=== PATIENT | female | born 1995 | race Caucasian/White ===

== ENCOUNTER 2025-06-05 07:41 | Emergency (ER) | payer OTHER, SELFPAY ==
[2025-06-05 07:43] VITALS: BP 128/86
[2025-06-05 08:23] VITALS: BMI 32.2
[2025-06-05] MEDS: NSS 1000 IV (08:36)
[2025-06-05] MEDS: TORADOL 15 MG IV (08:37)
--- NOTE | 2025-06-05 08:39 | ED.GENMED ---
History of Present Illness
General
Chief Complaint: Flank Pain
Source: patient
Exam Limitations: none
Time Seen by Provider: 06/05/25 07:56
Nursing documentation reviewed up to this point in time: agreed with
History of Present Illness
History of Present Illness:
Patient is a 30-year-old female with past with history of depression ADHD, kidney stones presents to the ER for evaluation of left flank pain. She reports pain started last night around 9 PM radiates to her left abdomen. She does report this feels
similar to her kidneys in the past. She is nauseous and has vomited. She denies any fever chills urinary frequency urgency.
Phy Exam
General Physical Exam
General Presentation: no apparent distress
General age: appears stated age
General Skin: warm and dry
General Habitus: normal
General Mental: alert
General Hydration: appears well hydrated
Gastrointestinal Exam
Gastrointestinal Exam: non tender and soft
Neurological Exam
Neurological Exam: alert and oriented x3
Musculoskeletal Exam
Musculoskeletal Exam: full ROM
Skin Exam
Skin Exam: normal color and warm/dry
Psychiatric Exam
Psychiatric Exam: normal mood/affect
Course
Orders/Labs/Results
Orders:
Orders
06/05/25 08:07
Test Result ONCE
06/05/25 08:19
IV Insert/Care/Rem.- Treatment PRN
0.9% Sodium Chloride 1000 ml [Nss] 1,000 ml IV BOLUS
Ketorolac [Toradol] 15 mg IV NOW STA
06/05/25 08:20
CT Abd/pel Without Iv Or Oral Urgent
Comment:
Reason For Exam: left flank pain
06/05/25 08:35
Complete Blood Count/With Diff Urgent
06/05/25 09:23
Comprehensive Metabolic Panel Urgent
HCG, Serum Qualitative Screen Urgent
06/05/25 09:49
HYDROmorphone [Dilaudid] 0.5 mg IV NOW STA
Ondansetron Injectable [Zofran] 4 mg IV NOW STA
06/05/25 12:20
UA Reflex to Culture [Urinalysis Reflex To Culture] Urgent
Date Specimen was Collected: 06/05/25
Time Specimen was Collected: 12:14
Urine Microscopic Reflex Cult Urgent
Urine Culture Urgent
LING Source: U
Specimen Description:
Date Specimen was Collected: 06/05/25
Time Specimen was Collected: 12:14
Tamsulosin [Flomax] 0.4 mg PO NOW STA
Abnormal Lab Results
06/05/25 06/05/25 06/05/25
08:35 09:23 12:20
WBC 3.0 L 10^3/uL
(4.8-10.8)
Absolute Lymphs (auto) 0.2 L 10^3/uL
(1.2-3.4)
Absolute Monos (auto) 0.0 L 10^3/uL
(0.1-0.6)
Neutrophils % 90.9 H %
(42.2-75.2)
Lymphocytes % 7.8 L %
(20.5-51.1)
Monocytes % 0.3 L %
(1.7-9.3)
Chloride 111 H mmol/L
(98-107)
Carbon Dioxide 17 L mmol/L
(22-30)
Creatinine 1.4 H mg/dL
(0.6-1.0)
Calcium 8.3 L mg/dl
(8.4-10.2)
AST 79 H U/L
(14-36)
ALT 38 H U/L
(0-35)
Urine Ketones 1+ A
(Negative)
Ur Occult Blood Reflex 4+ A
(Negative)
Urine Nitrite (Reflex) Positive A
(Negative)
Urine Bilirubin 3+ A
(Negative)
Urine Urobilinogen 4+ A
(Neg - 1+)
Leukocyte Esterase Rfl 3+ A
(Negative)
Urine RBC 3-6 A /HPF
(0-2)
Urine WBC (Reflex) 50-60 A /HPF
(0-5)
Urine Bacteria (Reflex) Few A
(Negative)
Urine Albumin (Reflex) 2+ A
(Neg - Trace)
06/05/25 08:35
06/05/25 09:23
Vital Signs
Initial and Last Documented VS:
Initial Vital Signs
Temp Pulse Resp BP Pulse Ox
98.8 F 108 16 128/86 96
06/05/25 07:43 06/05/25 07:43 06/05/25 07:43 06/05/25 07:43 06/05/25 07:43
Last Documented Vital Signs
Temp Pulse Resp BP Pulse Ox
98.8 F 105 16 104/69 100
06/05/25 07:43 06/05/25 12:15 06/05/25 12:15 06/05/25 12:15 06/05/25 12:15
Sales Lead consulted with Physician
Sales Lead consulted with physician?: Yes
Name of Physician Consulted: [facility]
MDM/Problems Addressed
Differential Diagnosis Includes:
not limited to renal colic; UTI
MDM/Problems Addressed:
As documented patient is a 30-year-old female present with left flank pain. CAT scan does show kidney stone. Patient does have a history of kidney stone. Patient has a 2 mm obstructing left UVJ calculus. Received fluids Toradol did require IV
narcotics. Feeling better. She denies any fevers white count is minimally low at 3.0. Her LFTs very minimally elevated with normal renal function. When speaking to her about her liver functions she is on multiple antidepressants and antianxiety
medicine and was told this could raise her liver function test. Will have patient follow-up with her family doctor for reevaluation of this along with repeat blood work.
Will DC with outpatient with urology .
Patient did give urine specimen however appears contaminated with 26�30 squamous cells. White blood cells at 50�60 however with contaminated specimen as discussed with ED physician will hold off on treating at this time. Culture sent. Patient has
no urinary symptoms, afebrile in no distress.
Chronic conditions affecting care:
History of previous renal colic, depression anxiety
*Radiology
Radiology exam reviewed: radiology read reviewed
*Pulse Oximetry
SaO2: 96
Oxygen Mode of Delivery: Room air
Patient hypoxic: no
*Critical Care Note
Total Time (30-74mins, 75-104mins- exclusive of procedures): Not Applicable
ED Attending Note
-
Portions of this chart may have been created with voice recognition software.� Occasional wrong word or��sound alike� substitutions may have occurred due to the inherent limitations of voice recognition software.
Discharge Plan
Departure
Patient Disposition: Home (Routine Discharge)
Date of Disposition: 06/05/25
Time of Disposition: 13:08
Patient with high blood pressure during this ER visit?: No
Condition: Fair
Covid-19: Not Applicable
Discharge Problem:
Kidney stone
Instructions: Kidney Stones (DC), Narcotic Pain Medication
Prescriptions:
New
tamsulosin [Flomax] 0.4 mg capsule
0.4 mg PO DAILY Qty: 7 0RF
oxycodone 5 mg capsule
5 mg PO Q8H PRN (Reason: Pain) Qty: 10 0RF
Referrals:
Sandip Carey Jr., MD [Active, Urology]
Leela Pat MD [Family Provider, Family Practice]
Activity Restrictions/Additional Instructions:
As discussed please increase water intake; you may continue to take Flomax. Strain all urine
You may take ibuprofen and alternate with Tylenol as needed for pain however a prescription for oxycodone, and narcotic pain is so sent to pharmacy take as needed. This medicine may cause constipation please take a laxative while taking this
medication. In addition this is a narcotic no driving or drinking alcohol while taking this medicine
Follow-up with urology in the next several days . call to make an appointment.
As discussed a urine culture was sent please give the ER a call if you do not hear from us within the next 48 hours [phone] to check on urine culture
Return if any worsening of symptoms of increased pain fever chills nausea vomiting.
Interventions
Interventions:
*Risk Screen - Suicide Last Done: 06/05/25 07:43
*General Assessment Last Done: 06/05/25 08:18
*Neglect/Abuse Screening Last Done: 06/05/25 07:43
*ED- Fall Risk Assessment Last Done: 06/05/25 07:55
*ED COVID-19 Vaccine History Last Done: 06/05/25 08:18
QK-[id number]-Twvlowpmbc Assessment Last Done: 06/05/25 07:55
ED-Female Genitourinary Assessment Last Done: 06/05/25 07:55
Discharge Date and Time
Print Language: SPANISH
[2025-06-05 08:46] LABS: Hematocrit 39.4 % (37.0-47.0); Hemoglobin 13.3 g/dL (12.0-16.0); Mean Corp Hgb Conc. 33.8 g/dL (33.0-37.0); Mean Corpuscular Volume 84.5 fL (81.0-99.0); Nucleated Red Blood Cells % 0 %; Platelet Count 227 10^3/uL (130-400); Red Cell Dist. Width 12.6 % (11.5-14.5)
[2025-06-05 09:29] VITALS: BP 105/67
[2025-06-05 09:46] LABS: HCG, Serum Qualitative Screen Negative
[2025-06-05 09:48] LABS: ALT (SGPT) 38 U/L (0-35); AST (SGOT) 79 U/L (14-36); Albumin 4.0 g/dl (3.5-5.0); Alkaline Phosphatase 89 U/L (38-126); Blood Urea Nitrogen 17 mg/dl (7-17); Calcium 8.3 mg/dl (8.4-10.2); Carbon Dioxide 17 mmol/L (22-30); Chloride 111 mmol/L (98-107); Estimated Creatinine Clearance 58 ml/min; Glucose 92 mg/dl (70-99); Potassium 3.9 mmol/L (3.5-5.1); Sodium 137 mmol/L (135-145); Total Protein 6.6 g/dl (6.3-8.2); eGFR 52.23
[2025-06-05] MEDS: DILAUDID 0.5 MG IV (09:54)
[2025-06-05] MEDS: ZOFRAN 4 MG IV (09:54)
[2025-06-05 12:15] VITALS: BP 104/69
[2025-06-05] MEDS: FLOMAX 0.4 MG PO (12:24)
[2025-06-05 12:30] LABS: Urine Character Slightly Cloudy (Clear)
[2025-06-05 12:54] LABS: Urine Squamous Cell 26-30 /LPF (Few); Urine White Cell 50-60 /HPF (0-5)
[2025-06-05 13:22] VITALS: BP 110/77
== END 2025-06-05 13:25 | disposition home or self-care (01) ==
LOC: EMR 07:41
PROVIDERS: Nurse Practitioner; EMERGENCY PHYSICIAN Emergency Medicine; FAMILY PHYSICIAN Family Medicine
DX: N20.2 Calculus of kidney with calculus of ureter (principal); F32.A Depression, unspecified; F90.9 Attention-deficit hyperactivity disorder, unspecified type; Z87.442 Personal history of urinary calculi
CPT/HCPCS: 99284; 96374; 96375; 96361; 74176; 80053; 81003; 81015; 84703; 85025; 87077; 87086; 87186

== ENCOUNTER 2025-06-06 08:20 | Inpatient (IN) | payer OTHER, SELFPAY ==
[2025-06-06] VITALS (52 sets, daily range): BP systolic 50–134; BP diastolic 25–118; BMI 35.9
[2025-06-06] MEDS: NSS 1000 IV ×2 (07:07→08:11)
[2025-06-06] MEDS: LEVOPHED 250 IV ×3 (07:07→20:58)
[2025-06-06] MEDS: MAXIPIME 2000 MG IV ×2 (07:08→17:47)
--- NOTE | 2025-06-06 07:11 | ED.GENMED ---
History of Present Illness
General
Chief Complaint: Fever
Source: patient and records
Exam Limitations: clinical condition
History of Present Illness
History of Present Illness:
30-year-old female returns dizzy lightheaded weak ongoing back and now some neck pain. Seen yesterday for kidney stone. 2 mm stone distal ureter with hydronephrosis. Sweating at home but no obvious chills or fever. Ongoing nausea. Pain
management at midnight but no other pain medication since then
Past History
Past History
ED Past Medical History: Psychiatric (ADHD/depression)
ED Past Surgical History: Cholecystectomy and
Review of Systems
Review of Systems
All Other Systems: Not applicable
Constitutional: Reports night sweats; Denies fever
Respiratory: Reports no symptoms
Cardiac: Reports no symptoms
Phy Exam
Physical Exam
Physical Exam:
GENERAL: Alert. Toxic appearing. Slightly pale. Tachycardic and hypotensive
EYE: Orbits normal.
NECK: Supple, no pain with flexion
ENT: Pharynx without erythema
CARDIAC: Tachycardic and regular no murmur
LUNGS: Clear breath sounds,normal. Mild hyperventilation
ABDOMEN: Soft, without focal tenderness or distention
NEUROLOGICAL: Alert and oriented , grossly non-focal
SKIN: Warm and dry, no rash or lesion, no discoloration, skin intact.
MUSCULOSKELETAL: No edema,no deformity.Good color
PSYCH: Anxious
Sepsis
Sepsis Screening
Sepsis Assessment: Septic Shock
Sepsis Screening: Lactate >/=4mmol/L, Hypotension, ARF-Creatinine >2.0, Sustained Hypotension-SBP <90,MAP<65, or SBP decrease 40mmHg or more and Vasopressor support required
Sepsis Screen
Sepsis Screen: Septic Shock
Date: 06/06/25
Time: 09:08
Course
Orders/Labs/Results
Orders:
Orders
06/06/25 06:47
Electrocardiogram (*1) Urgent
Reason for Study: Other
Other Reason for Exam: sepsis
Cardiac Monitoring- Treatment ONCE
EKG- Treatment ONCE
IV Insert/Care/Rem.- Treatment PRN
0.9% Sodium Chloride 1000 ml [Nss] 1,000 ml IV BOLUS
Cefepime HCl [Maxipime] 2,000 mg IV NOW STA
Pulse Ox/cont/shift [RESP] Urgent
Quantity: 1
06/06/25 06:54
NORepinephrine 4 MG/250 ML [Levophed] 4 mg in 250 ml IV NOW
Initial dose in mcg/min, then titrate:: 2
Titrate to keep:: MAP > 65 mmHg
Titrate by mcg/min:: 1-2 mcg/min
Frequency of titrations (minutes):: 5
Maximum dose in ICU in mcg/min:: 30
Maximum dose in IMU in mcg/min:: 8
Maximum dose in IVU in mcg/min:: 4
Begin to taper infusion when:: Remained at goal for 4hrs
Taper by mcg/min:: 1-2 mcg/min
Frequency of taper (minutes) if patient maintains goal:: 30
Taper to off?: Yes
If infusion off & no longer maintaining goal:: Contact Provider
06/06/25 06:55
Complete Blood Count/With Diff Urgent
Comprehensive Metabolic Panel Urgent
Lipase Urgent
Comment: ADD ON
Manual Differential Urgent
Blood Culture Q30M
LING Source: Blood/Venous
Specimen Description:
Blood Culture Q30M
LING Source: Blood/Venous
Specimen Description:
06/06/25 06:57
IV Insert/Care/Rem.- Treatment PRN
06/06/25 06:59
Type+Screen Urgent
Lactic Acid Q4H
Comment: CANCEL 2nd LACTIC ACID IF 1st LACTIC ACID IS LESS THAN 2
06/06/25 07:10
Ondansetron Injectable [Zofran] 4 mg IV NOW STA
06/06/25 07:20
Acetaminophen 1000MG/100Ml [Ofirmev] 1,000 mg in 100 ml IV ONCE
Acetaminophen IV Indication:: ED Narcotic Naive Pt-ONCE
06/06/25 07:21
UROLOGY CONSULT Urgent
Consulting Provider: Kumar Oakley
Was physician already notified: Yes
Comment: Urosepsis 2/2 obstructing Kidney stone
06/06/25 07:23
Corn Shredder Consult Urgent
Consulting Provider: Bobby Egan
Was physician already notified: Yes
Reason for consult: sepsis obstructing kidney stone
06/06/25 07:26
CT Abd/pel Without Iv Or Oral Stat
Comment:
Reason For Exam: hypotension. kidnet stone
06/06/25 07:30
0.9% Sodium Chloride 1000 ml [Nss] 1,000 ml IV 100 mls/hr
06/06/25 07:31
Admit/Transfer Patient As Directed
Co-Sign Provider:
Level of Care: Inpatient admission
Assign to:: ICU
Physician / Group: Morelia Clark
Diagnosis: Sepsis 2/2 Obstructing Kidney Stone
Reason for Hospitalization: Sepsis 2/2 Obstructing Kidney Stone
Expected length of stay greater than two midnights?: Yes
ELOS- Estimated Length of Stay in days: 2
I certify the patient meets the requirements for IP care: Yes
PRN Pain Medication Management As Directed
May give lesser potent ordered pain med per pt: Yes
preference::
Protocol:: Medication orders for pain may be administered in a
manner that supports deferring to patient preference
when the pt is:
- Requesting an ordered lesser potent pain medication.
Least to most potent pain medications are defined
as: acetaminophen < NSAID < tramadol < opioids
(morphine, oxycodone, hydromorphone).
- Requesting a lesser dose of the same medication IF
ORDERED.
- Requesting a less intrusive route of administration
if both routes are prescribed by the provider (PO <
IV).
06/06/25 07:36
Code Status As Directed
Resuscitation Status: Full Code
06/06/25 07:54
0.9% Sodium Chloride 1000 ml [Nss] 1,000 ml IV BOLUS
06/06/25 07:55
Add On- LAB Urgent
Tests Added?: lipase
06/06/25 08:15
Dextrose 5%/Water 1000 ml [D5w] 1,000 ml Sodium Bicarbonate 150 meq IV 150 mls/hr
06/06/25 08:16
Vancomycin [Vancocin] 2,000 mg 0.9% Sodium Chloride 500 ml [Nss] 500 ml IV NOW
06/06/25 09:00
Calcium Gluconate 4,000 mg 0.9% Sodium Chloride 250 ml [Nss] 250 ml IV ONCE
06/06/25 11:00
Lactic Acid Q4H
Comment: CANCEL 2nd LACTIC ACID IF 1st LACTIC ACID IS LESS THAN 2
Abnormal Lab Results
06/06/25 06/06/25
06:55 06:59
WBC 16.1 H 10^3/uL
(4.8-10.8)
RBC 3.25 L 10^6/uL
(4.20-5.40)
Hgb 9.6 L D g/dL
(12.0-16.0)
Hct 27.8 L %
(37.0-47.0)
Plt Count 95 L D 10^3/uL
(130-400)
Abs Neuts (Manual) 13.5 H 10^3/uL
(1.4-6.5)
Band Neutrophils 35 H %
(0-3)
Lymphocytes (Manual) 1 L %
(20-51)
Chloride 111 H mmol/L
(98-107)
Carbon Dioxide 13 L* mmol/L
(22-30)
BUN 32 H mg/dl
(7-17)
Creatinine 2.9 H mg/dL
(0.6-1.0)
Lactic Acid 5.0 H* mmol/L
(0.7-2.0)
Calcium 6.6 L* D mg/dl
(8.4-10.2)
Total Bilirubin 1.7 H D mg/dl
(0.2-1.3)
AST 162 H U/L
(14-36)
ALT 163 H U/L
(0-35)
Total Protein 4.8 L D g/dl
(6.3-8.2)
Albumin 2.6 L g/dl
(3.5-5.0)
06/06/25 06:55
06/06/25 06:55
Vital Signs
Initial and Last Documented VS:
Initial Vital Signs
Pulse Resp BP
119 43 68/40
06/06/25 06:50 06/06/25 06:50 06/06/25 06:50
Last Documented Vital Signs
Temp Pulse Resp BP Pulse Ox
97.4 F 127 23 106/44 98
06/06/25 07:05 06/06/25 08:50 06/06/25 08:50 06/06/25 08:50 06/06/25 08:50
*Pulse Oximetry
SaO2: 99
Oxygen Mode of Delivery: Room air
Patient hypoxic: no
*EKG
Interpreted by ED Provider?: Yes
Interpretation: abnormal
Comparison EKG: changes noted
Heart Rate: 110
Rate: tachycardiac
Rhythm: sinus
[place]: normal axis
Interval: normal interval
QRS Pattern: normal QRS
Ischemia: non-specific ST changes
*Shoe Dyer Interpretation
Rate: tachycardiac
Interpretation: abnormal
Heart Rate: 120
Rhythm: sinus
*Critical Care Note
Total Time (30-74mins, 75-104mins- exclusive of procedures): 50
Update Note
Update Note:
0700... Urology contacted. Plan on the OR. #1 diagnosis would be urosepsis. Would have to considered a ruptured calyx but am not sure this would explain all her symptoms. She has some posterior neck pain also. Abdomen is nontender. Blood
pressure is improved somewhat on fluids and pressors.
0730... I called the lab. Drop in hemoglobi
Hg from 13+ to 9.6. Likely delusional but will resend her for a stat CT to rule out acute bleeding. She is clinically improved with improved blood pressure and improved appearance. Hospitalist and with patient now
Patient has received 1500 cc of fluid prehospital. Plus an extra thousand here. This is about 30 cc/kg. Will administer an extra 500 more
Discussed with nephrology. Bump in creatinine. Hypocalcemia. They recommended a calcium rider and bicarb 150 mill equivalents at 150 cc/h. Patient has been rechecked multiple times. Blood pressure currently 100. Still tachycardic 120. She
neurologically is perfusing and appears improved clinically. Urology has seen the patient. Awaiting OR
ED Attending Note
-
Portions of this chart may have been created with voice recognition software.� Occasional wrong word or��sound alike� substitutions may have occurred due to the inherent limitations of voice recognition software.
Discharge Plan
Departure
Patient Disposition: Admit
Date of Disposition: 06/06/25
Time of Disposition: 07:15
Presentation/result/management discussed w/ accepting MD/DO: Urology
Discharge Problem:
Urosepsis, Obstructing kidney stone, Renal failure, Hypocalcemia
Interventions
Interventions:
*Risk Screen - Suicide Last Done: 06/06/25 07:12
*General Assessment Last Done: 06/06/25 07:12
*Neglect/Abuse Screening Last Done: 06/06/25 07:17
*ED- Fall Risk Assessment Last Done: 06/06/25 07:12
*ED COVID-19 Vaccine History Last Done: 06/06/25 07:12
*Nursing Disposition Last Done: 06/06/25 09:00
ED- Neurological Assessment Last Done: 06/06/25 08:01
ED-Skin Assessment Last Done: 06/06/25 08:03
Discharge Date and Time
Discharge Date/Time: 06/06/25 09:01
[2025-06-06] MEDS: ZOFRAN 4 MG IV (07:13)
[2025-06-06 07:27] LABS: Hematocrit 27.8 % (37.0-47.0); Hemoglobin 9.6 g/dL (12.0-16.0); Mean Corp Hgb Conc. 34.5 g/dL (33.0-37.0); Mean Corpuscular Volume 85.5 fL (81.0-99.0); Red Cell Dist. Width 13.0 % (11.5-14.5)
--- NOTE | 2025-06-06 07:31 | HPS.HSE ---
Family Physician
-
Family Physician:
Chief Complaint
-
Nausea/Vomiting/Left Flank Pain
History of Present Illness
30F Obesity ADHD Depression here for Nausea vomiting left flank pain likely 2/2 to obstructing kidney stone. Evaluated for the same yesterday in ED, improved with conservative mgmt, no significant white count elevation, aseptic presentation,
patient was subsequently discharged with plans for outpatient follow up. Patient's symptoms however progressivly worsened prompting return. ED eval significant for severe sepsis (tachycardia WBC elevation Tachypnea), systolic in 60s, improved with
fluid boluses to systolic 90s. AOx3 conversant coherent. Labs concerning for severe sepsis with white count elevation and worsening JUAN and Liver injury. Empirically started on Vanc and Cefipime, Urology plans for OR stenting. Patient to be
admitted postoperatively to ICU for closer monitoring and pressor support prn.
Medical History
Past Medical History
Past Medical History: Reports Other (as above)
Past Surgical History: Reports Other (as above)
Social History
Unable to obtain full social history at this time due to: Acuity
Family History
Family History: Not pertinent
Allergies / Home Medications
Allergies reflects when Allergies were last updated in [facility].
Home Medications with original date entered in [facility]
Allergy/Medication List:
Allergies
Allergy/AdvReac Type Severity Reaction Status Date / Time
sulfamethoxazole (From Allergy Rash Verified 06/06/25 06:51
Bactrim)
trimethoprim (From Bactrim) Allergy Rash Verified 06/06/25 06:51
Home Medications
oxycodone 5 mg capsule 5 mg PO Q8H PRN Pain #10 caps 06/05/25
tamsulosin 0.4 mg capsule (Flomax) 0.4 mg PO DAILY #7 caps 06/05/25
atomoxetine 40 mg capsule 60 mg PO DAILY 06/06/25
bupropion HCl 300 mg 24 hr tablet, extended release 300 mg PO DAILY 06/06/25
duloxetine 40 mg capsule,delayed release sprinkle 40 mg PO DAILY 06/06/25
lamotrigine 25 mg tablet (Lamictal) 50 mg PO HS 06/06/25
metoclopramide HCl 10 mg tablet 10 mg PO AC PRN acid reflux 06/06/25
topiramate 100 mg tablet 100 mg PO DAILY 06/06/25
Review of Systems
-
A 12 point ROS was completed and negative except as noted: Yes
Constitutional: Reports Other (as below)
Physical Exam
Vital Signs
Vital Signs
Pulse Resp BP Pulse Ox
110 30 96/57 99
06/06/25 07:10 06/06/25 07:10 06/06/25 07:10 06/06/25 07:12
Physical Exam
General: Other (as below)
Laboratory Results
-
06/06/25 06:55
Impression/Plan
-
ROS
General: Denies fever chills night sweats unexpected weight loss
Neuro: Denies seizure shaking loss of consciousness dizziness vertigo
Psych: denies depression hallucinations confusion manic episodes
Endocrine: Denies polyuria polydipsia polyphagia heat/cold intolerance
HEENT: Denies blindness visual disturbances epistaxis
Pulmonary: denies coughing hemoptysis sneezing sob dyspnea on exertion
Cardiovascular: denies chest pain palpitations leg swelling
Hematology: denies signs symptoms of anemia easy bruising/bleeding
Gastrointestinal: reports nausea vomiting denies diarrhea constipation hematemesis hematochezia melena
Genito-Urinary: reports left flank pain
Musculoskeletal: denies joint pain weakness
Dermatology: denies rash laceration bruising
Physical Exam
General: No pallor, cyanosis, or jaundice. Obese
HEENT: Throat clear. PERRLA Normocephalic atraumatic
NECK: Supple. No JVD Carotid Bruits
RESPIRATORY: Lungs clear to auscultation. No crackles wheezes stridor
CVS: S1, S2 normal. RRR. No murmur, rub or gallop.
ABDOMEN: Soft, non-tender. No distension. Decreased bowel sounds. Left sided flank pain/costovertebral angle tenderness
EXTREMITIES: No peripheral cyanosis or edema.
CRYSTAL ATTACHER: AOx3. conversant coherent
Psych: Calm
IMPRESSION:
30F hx ADHD Depression Obesity here for Severe Sepsis 2/2 left obstructing kidney stone with associate JUAN and Liver Injury. Planned for urgent OR stenting and admission to ICU for closer monitoring and pressor support as needed.
PLAN:
#Severe Sepsis 2/2 left obstructing kidney stone with associate JUAN and Liver Injury
ICU admit
Transition Mgr Rn eval
Urology eval appreciated planned for OR stenting
Levophed prn MAP>65, so far has not required, severe hypotension improved with IVF bolus
cont IVF support
monitor renal function and LFTs
cont empiric Vanc Cefipime renally dosed
follow cultures
#Metabolic Acidosis likely 2/2 Lactic acidosis
IVF support
trend lactic acid
#Hypocalcemia
monitor and replete as necessary
#Hx ADHD, Depression
cont home atomoxetine bupropion duloxetine Lamictal
DVT ppx SCDs
Full Code
Discussed with patient and patient's mother Sondra
Total Critical Care Time__50___ minutes. I was immediately available to the patient and staff. I personally examined, reviewed labs, diagnostic images/reports, interpretations, treatment plans, discussed patient care with other providers and
family or caregivers (if patient is unable to make decisions), entered orders as appropriate and documented the medical record.
--- NOTE | 2025-06-06 07:44 | CON.INTV ---
Consultation
Consultation Request
Date/Time Consultation Requested: 06/06/2025-10 AM
Date/Time Consultation Performed: 06/06/2025-10:30 AM
Requesting Provider: Hospitalist
Performing Provider: Dr. Egan
Reason for Consultation: Urosepsis
Medical History
-
Chief Complaint: Urosepsis
History of Present Illness:
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
for urosepsis/critical care management 06/06/25.. The patient came to the emergency room 2 days ago with left flank pain noted to have some hydro nephrosis but had a negative UA and was not sent home on antibiotics and told she will likely pass the
stone aborted urology. She returned with nausea, emesis, hypotension, dizziness, and felt to be uroseptic and thus admitted. She complained of no fevers but had sweats, rigors, dizziness, anterior chest pain, mild complaints of what sounds like
maybe pleurisy, nausea, no diarrhea, blood per rectum, hematemesis but had some emesis that was nonbilious. She complained of generalized weakness but no focal weakness or leg swelling. She has been somewhat sedentary as she has not been feeling
well.
Past Medical History
Past Medical History: None (Obesity. Depression. ADHD. Former smoker.)
Social History
Tobacco: Former Smoker (Less than 10 pack year-started 14 years old-quit 28 years old-1 pack/week)
Alcohol: None
Drug: None
Personal: Single
Occupational Exposures: No known asbestos exposure
Environmental Exposures: No known tuberculosis exposure
Family History
Family History: Reviewed & Not Pertinent
Allergies / Home Medications
Allergies
Allergy/AdvReac Type Severity Reaction Status Date / Time
sulfamethoxazole (From Allergy Rash Verified 06/06/25 06:51
Bactrim)
trimethoprim (From Bactrim) Allergy Rash Verified 06/06/25 06:51
Home Medications
�Medication �Instructions �Recorded �Confirmed �Last Taken �Type
oxycodone 5 mg capsule 5 mg PO Q8H PRN Pain #10 caps 06/05/25 06/06/25 Unknown Rx
tamsulosin 0.4 mg capsule (Flomax) 0.4 mg PO DAILY #7 caps 06/05/25 06/06/25 Unknown Rx
atomoxetine 40 mg capsule 60 mg PO DAILY 06/06/25 06/06/25 Unknown History
bupropion HCl 300 mg 24 hr tablet, 300 mg PO DAILY 06/06/25 06/06/25 Unknown History
extended release
duloxetine 40 mg capsule,delayed 40 mg PO DAILY 06/06/25 06/06/25 Unknown History
release sprinkle
lamotrigine 25 mg tablet (Lamictal) 50 mg PO HS 06/06/25 06/06/25 Unknown History
metoclopramide HCl 10 mg tablet 10 mg PO AC PRN acid reflux 06/06/25 06/06/25 Unknown History
topiramate 100 mg tablet 100 mg PO DAILY 06/06/25 06/06/25 Unknown History
Review of Systems
-
Unable to Obtain full review of systems at this time due to: Other (Per HPI)
Vitals / Labs / Diagnostic Testing
Vital Signs
Pulse Resp BP Pulse Ox
110 30 96/57 99
06/06/25 07:10 06/06/25 07:10 06/06/25 07:10 06/06/25 07:12
Lab Data
06/06/25 06:55
Diagnostic Testing:
Physical Exam
-
Exam:
Well-nourished and well-developed in no apparent distress
HEENT-atraumatic, normocephalic, thick neck
Neck-supple, no JVD, no bruit
Heart-regular rate and rhythm-no murmurs, rubs or gallops
Chest with crackles at the right greater than left base
Back with left-sided CVA tenderness
Abdomen-soft, nontender, nondistended, no hepatosplenomegaly
Extremities-no cyanosis, clubbing, edema and good peripheral pulses
Integument-intact, no rashes, lesions or ecchymosis
Neurology-alert and oriented, nonfocal motor and sensory exam
Assessment
-
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
for urosepsis/critical care management 06/06/25..
Urosepsis with shock unresponsive to fluids requiring pressors
Left obstructing renal calculi
Status post left ureteroscopy, stone removal and stenting with purulent urine upon relief of obstruction 06/06/2025-Dr. Oakley
Mild pleurisy, [id number] pending
JUAN
Transaminitis
Metabolic acidosis
Lactic acidosis
Hypocalcemia
Leukocytosis-WBC 16.1
Jwchxl-ipjnldaypu-yagrxiutqa 9.6
Thrombocytopenia-platelet 95
Conditions present prior to admission:
Obesity.
Depression.
ADHD.
Former smoker-less than [id number]
Plan
Admit patient to medical intensive care unit for persistent hypotension despite fluid resuscitation requiring pressors
Supplement oxygen as needed
High flow oxygen if needed
BiPAP if necessary
Intubate and mechanically ventilate if necessary
Aspiration precautions
Nebulizers if needed
With atypical chest pain, mild pleurisy, recent sedentary existence check D-dimer and if positive workup venous thromboembolic disease
Obtain cultures
Urine cultures from the day before admission 06/05/2025-E. coli
Empiric antibiotics
Monitor leukocytosis
Fluid resuscitation with 30 mL/kg crystalloid-preferably lactated ringer-(less JUAN) with subsequent boluses as needed
Monitor lactate
Follow CVP if possible
Attempt noninvasive bedside tissue perfusion evaluation to see if fluid bolus responsive
Measure pulse pressure and stroke volume variation if patient on ventilator, passively breathing without arrhythmia and with temporary large tidal volume ventilation and if > 13% then likely fluid bolus responsive
If patient active then consider measuring bedside leg lift for 3 minutes and if cardiac output increases or if there is a rise of 2-4 on end-tidal CO2 then fluid bolus
If bedside ultrasound available then measure IVC diameter variation to evaluate for fluid bolus responsiveness
Begin pressors as needed for MAP goal of 65-Norepinephrine first, then Vasopressin and consider Angiotensin II if continues to be hypotensive
Consider methylene blue if available-specific inhibitor of induced nitric oxide synthase iNOS and its downstream enzyme soluble guanylate cyclase-noninferiority study shown to reduce time to vasopressor discontinuation, decreased ICU length of stay,
hospital stay but no change in mortality-published Critical Care 12/14/2022
Monitor renal function
Nephrology evaluation if renal function does not improve with hydration
Follow-up LFTs
Follow hemoglobin and platelet count
Transfuse if needed
If persistently hypotensive then consider checking random cortisol-hydrocortisone if random less than 3, if 3-15 then consider ACTH stimulation test
If persistently hyperthermic then correcting hyperthermia can decrease pressor requirements, increased chances of reversal of shock and decrease mortality
DVT prophylaxis-heparin initiated with renal failure
Early nutrition if possible
Early mobilization/bedside range of motion
Outpatient pulmonary/sleep disorders follow-up
Critical care statement: A total of 65 minutes of critical care time was provided for this patient today. This includes management of unstable vital signs, evaluation of the patient at bedside, reviewing the patient's pertinent medical records
including radiographs, pressor management, microbiology, laboratory evaluations, and discussion with primary team, consultants, pharmacy, nutrition, physical therapy, case management, charge nurse, critical care nursing, and respiratory therapy.
Diagnostic data:
CT abdomen and pelvis 06/06/25-2 mm calculus again seen in the left ureterovesicular junction with mild left hydronephrosis and mild left perinephric stranding, mild hepatomegaly, small fat only containing umbilical hernia, prior cholecystectomy
Data Reviewed
-
EKG: Report reviewed by me
Radiology: Image personally visualized and interpreted and Report reviewed by me
CT Scan: Report reviewed by me
Medical Tests (Nuc Med, Echo etc): Report reviewed by me
Labs: Labs reviewed by me
Old Records: Reviewed
Critical Care Time (in minutes): 65
[2025-06-06 07:50] LABS: ALT (SGPT) 163 U/L (0-35); AST (SGOT) 162 U/L (14-36); Albumin 2.6 g/dl (3.5-5.0); Alkaline Phosphatase 108 U/L (38-126); Blood Urea Nitrogen 32 mg/dl (7-17); Calcium 6.6 mg/dl (8.4-10.2); Carbon Dioxide 13 mmol/L (22-30); Chloride 111 mmol/L (98-107); Estimated Creatinine Clearance 30 ml/min; Glucose 71 mg/dl (70-99); Potassium 4.0 mmol/L (3.5-5.1); Sodium 135 mmol/L (135-145); Total Protein 4.8 g/dl (6.3-8.2); eGFR 21.80
--- NOTE | 2025-06-06 07:52 | CONS.URO ---
Consultation
-
Date/Time Consultation Performed: 06/06/2025 0745
Requesting Provider: Elías/ED
Performing Provider: Adin
Reason for Consultation: Left ureteral stone, sepsis
Medical History
History of Present Illness
ED note: '30-year-old female returns dizzy lightheaded weak ongoing back and now some neck pain. Seen yesterday for kidney stone. 2 mm stone distal ureter with hydronephrosis. Sweating at home but no obvious chills or fever. Ongoing nausea.'
prior kidney stone episode
Past Medical History
Past Medical History: Other (ADHD/depression, kidney stone)
Past Surgical History: Cholecystectomy and Gynocological ()
Allergies/Home Medications
Allergies
Allergy/AdvReac Type Severity Reaction Status Date / Time
sulfamethoxazole (From Allergy Rash Verified 06/06/25 06:51
Bactrim)
trimethoprim (From Bactrim) Allergy Rash Verified 06/06/25 06:51
Home Medications
�Medication �Instructions �Recorded �Confirmed �Type
oxycodone 5 mg capsule 5 mg PO Q8H PRN Pain #10 caps 06/05/25 06/06/25 Rx
tamsulosin 0.4 mg capsule (Flomax) 0.4 mg PO DAILY #7 caps 06/05/25 06/06/25 Rx
atomoxetine 40 mg capsule 60 mg PO DAILY 06/06/25 06/06/25 History
bupropion HCl 300 mg 24 hr tablet, 300 mg PO DAILY 06/06/25 06/06/25 History
extended release
duloxetine 40 mg capsule,delayed 40 mg PO DAILY 06/06/25 06/06/25 History
release sprinkle
lamotrigine 25 mg tablet (Lamictal) 50 mg PO HS 06/06/25 06/06/25 History
metoclopramide HCl 10 mg tablet 10 mg PO AC PRN acid reflux 06/06/25 06/06/25 History
topiramate 100 mg tablet 100 mg PO DAILY 06/06/25 06/06/25 History
Physical Exam
Vital Signs
Vital Signs
Pulse Resp BP Pulse Ox
110 30 96/57 99
06/06/25 07:10 06/06/25 07:10 06/06/25 07:10 06/06/25 07:12
Lab / Testing Results
Laboratory Results
06/06/25 06:55
06/06/25 06:55
Physical Exam
adult female in ED gurney
appears fatigued but not in distress
Genito-urinary: Costovertebral Angle Tend (left)
Neuro: Awake
Psych: Calm
Assessment / Plan
-
Left Ureteral Stone with sepsis
Plan: emergently to OR to alleviate obstruction by stone; consent signed
Data Reviewed
-
Diagnostic Radiology: Discussed with Physician (ED doc and admitting Hospitalist)
CT Scan: Image personally visualized and interpreted
Lab Data: Labs Reviewed
Old Records: Reviewed
[2025-06-06] MEDS: OFIRMEV 100 IV (07:56)
[2025-06-06 08:04] LABS: Platelet Count 95 10^3/uL (130-400)
[2025-06-06 08:06] LABS: Normal RBC Morphology Yes; Platelets Checked Yes
[2025-06-06 08:07] LABS: Total Cells Counted 100; Toxic Granulation Slight
[2025-06-06 08:09] LABS: Absolute Neutrophils -Man Diff 13.5 10^3/uL (1.4-6.5)
[2025-06-06] MEDS: CALCIUM GLUCONATE 290 MG IV (08:36)
[2025-06-06] MEDS: VANCOCIN 540 MG IV (08:36)
[2025-06-06] MEDS: SODIUM BICARBONATE 1150 MEQ IV (08:36)
[2025-06-06 08:47] LABS: Lipase 27 U/L (23-300)
--- NOTE | 2025-06-06 09:40 | W.IMMPOSTOP ---
Surgical Immed Post Op Note
-
Primary Surgeon:
Adin
Pre-op Diagnosis: obstructing left ureteral stone with sepsis
Post-op Diagnosis: same
Procedure Performed: left ureteroscopy, stone removal, stenting
Anesthesia Type: gen
Specimen / Cultures: left ureteral stone
Estimated Blood Loss: none
Complications: none
Operative Findings: impacted distal left ureteral stone; purulent urine upon relief of obstruction
6 fr 24 cm left ureteral stent insertion
mother apprised post-op
--- NOTE | 2025-06-06 09:48 | PHA.VAN.IN ---
Addendum entered and electronically signed by Rand Peters [facility] 06/06/25 16:12:
Patient with good UOP post stent - will give additional 1000mg (11mg/kg) x1 dose tonight to ensure patient maintains level
Original Note:
Assessment
- Assessment
Renal Function: Unknown baseline (SCR 1.4 --> 2.9)
Concomitant Antimicrobials: cefepime
Plan
- Plan
Initial / Loading Dose: 2000mg - 06/06 08:36
Maintenance Regimen: dosing by level
Monitoring: random 06/07 0600
Pharmacokinetics Vancomycin I
- -
Patient Age: 30
Patient Sex: Female
Vancomycin Day #: 1
Indication: Genito-Urinary Tract
Requesting Provider: Dr. Clark
Pertinent Antimicrobial Allergies:
smx/tmp - rash
Height / Weight:
Height 5 ft 2 in
Actual Weight 89 kg
Pertinent Past Medical History: BMI ~36
- Vital Signs / Lab Results
Temp Pulse Resp BP Pulse Ox
97.4 F 127 23 106/44 98
06/06/25 07:05 06/06/25 08:50 06/06/25 08:50 06/06/25 08:50 06/06/25 08:50
Lab Results - Hematology
06/06/25
06:55
WBC 16.1 H
Band Neutrophils 35 H
Lab Results - Chemistry
06/06/25
06:55
BUN 32 H
Creatinine 2.9 H
Estimated Creat Clear 30
Albumin 2.6 L
06/06/25
06:59
Lactic Acid 5.0 H*
[2025-06-06 11:00] LABS: Glucose - Point of Care 129 mg/dl (70-99)
--- NOTE | 2025-06-06 11:20 | CON.INTV ---
Consultation
Consultation Request
Date/Time Consultation Requested: 7:23 06/06/25
Date/Time Consultation Performed: 11:00 06/06/25
Medical History
-
History of Present Illness:
30yoF PMH nephrolithiasis presenting with urosepsis secondary to nephrolithiasis.
Pt presented to ED yesterday with severe back pain and increased urinary frequency found to be a 2mm kidney stone. She was sent home with tamsulosin to pass the stone. No abx were prescribed at the time since the UA demonstrated contamination. Since
yesterday, she reports onset of chills, sweats, nausea, vomiting. She reports symptoms of orthostasis including blurry vision, lightheadedness, and SOB with ambulation to the bathroom. With deep breaths, pt describes chest and back pain.
Denies leg swelling or pain. Denies hx blood clotting, FH clotting disorders, miscarriages, OCP use.
Pt reports having a kidney stone .
Past Medical History
Past Medical History: Psychiatric
Past Surgical History: Cholecystectomy
Social History
Tobacco: Former Smoker (1 apck/wk for 15 yrs. Quit 2 months ago.)
Drug: None
Living: With Family (2 children. 3 and 5 years old)
Family History
Family History: Reviewed & Not Pertinent
Allergies / Home Medications
Allergies
Allergy/AdvReac Type Severity Reaction Status Date / Time
sulfamethoxazole (From Allergy Rash Verified 06/06/25 06:51
Bactrim)
trimethoprim (From Bactrim) Allergy Rash Verified 06/06/25 06:51
Home Medications
�Medication �Instructions �Recorded �Confirmed �Last Taken �Type
oxycodone 5 mg capsule 5 mg PO Q8H PRN Pain #10 caps 06/05/25 06/06/25 Unknown Rx
tamsulosin 0.4 mg capsule (Flomax) 0.4 mg PO DAILY #7 caps 06/05/25 06/06/25 Unknown Rx
atomoxetine 60 mg capsule 60 mg PO DAILY Mental 06/06/25 06/06/25 Unknown History
Health/Anxiety
bupropion HCl 300 mg 24 hr tablet, 300 mg PO DAILY 06/06/25 06/06/25 Unknown History
extended release
duloxetine 40 mg capsule,delayed 40 mg PO DAILY 06/06/25 06/06/25 Unknown History
release sprinkle
lamotrigine 25 mg tablet (Lamictal) 50 mg PO HS 06/06/25 06/06/25 Unknown History
metoclopramide HCl 10 mg tablet 10 mg PO AC PRN acid reflux 06/06/25 06/06/25 Unknown History
topiramate 100 mg tablet 100 mg PO DAILY 06/06/25 06/06/25 Unknown History
Review of Systems
-
History Source: Patient
Constitutional: Fever and Chills (and sweats)
Respiratory: Other (SOB with ambulation)
Cardiac: Chest Pain and Diaphoresis
: Dysuria, Frequency and Flank Pain
Musculoskeletal: No Symptoms
Skin: No Symptoms
Neuro: Dizzy
Endocrine: No Symptoms
Hematologic/Lymphatic: No Symptoms
Vitals / Labs / Diagnostic Testing
Vital Signs
Temp Pulse Resp BP Pulse Ox
97.4 F 126 28 93/77 94
06/06/25 10:20 06/06/25 10:15 06/06/25 10:15 06/06/25 10:20 06/06/25 10:20
Lab Data
06/06/25 06:55
06/06/25 06:55
Diagnostic Testing:
Physical Exam
-
HEENT: Normocephalic, Anicteric and Moist Mucous Membranes
Cardiovascular: S1/S2 and Regular Rhythm (no RV heave, murmur, gallops, tachycardic)
Respiratory: Clear (minimal bibasilar crackles ) and Non-Labored Respirations
GI: Soft and Non Tender
Neurology: AO x 3 and No Motor Deficits
Skin: Warm and Dry
Exam:
Pt laying in bed comfortably. Pain with movement.
Assessment
-
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
for urosepsis/critical care management 06/06/25.
Stones removed with purulent urine passing after. Leucocytosis 16.1. Lactic acid 5.0.
Urosepsis with shock unresponsive to fluids requiring pressors
Left obstructing renal calculi
Status post left ureteroscopy, stone removal and stenting with purulent urine upon relief of obstruction 06/06/2025-Dr. Oakley
Mild pleurisy, [id number] pending
JUAN
Transaminitis
Metabolic acidosis
Lactic acidosis
Hypocalcemia
Leukocytosis-WBC 16.1
Hwkdsy-rsiircmfam-mszcoihdgy 9.6
Thrombocytopenia-platelet 95
Conditions present prior to admission:
Obesity.
Depression.
ADHD.
Former smoker-less than [id number]
Plan
Neuro:
Awake and oriented x3
No sedation
Received ofrimev this morning. Monitor pain control.
Continue home atomoxetine, bupropion, duloxetine, lamotrigine, topirimate
Pulm:
D-dimer to r/o PE. Chest pain with deep breaths in setting of reduced ambulation. No clinical symptoms of DVT.
Bibasilar crackles likely atelectasis associated with splinting.
Encourage IS
Oxygen as needed. currently saturating appropriately on room air
BiPAP if necessary
Intubate and mechanically ventilate if necessary
Aspiration precautions
Nebulizers if needed
Cardio:
Hypotension on pressors MAP 87 in setting of septic shock
IVF resuscitation.
Pressors as needed for MAP goal of 65-Norepinephrine first, then Vasopressin and consider Angiotensin II if continues to be hypotensive
EKG demonstrated sinus tachycardia
ID:
Obtain cultures
Urine cultures from the day before admission 06/05/2025-E. coli
Empiric antibiotics
Monitor leukocytosis (16.1) and lactate (5) trends.
:
Monitor renal function
Nephrology evaluation if renal function does not improve with hydration
Urology removed stones this morning. Following
GI:
Follow-up LFTs
Denies current nausea/vomiting.
Diet as tolerated
Heme:
Follow hemoglobin and platelet count
Transfuse if needed
Endo:
If persistently hypotensive then consider checking random cortisol-hydrocortisone if random less than 3, if 3-15 then consider ACTH stimulation test
No hx thyroid dx or DM
If persistently hyperthermic then correcting hyperthermia can decrease pressor requirements, increased chances of reversal of shock and decrease mortality
DVT prophylaxis-heparin initiated with renal failure
Early nutrition if possible
Early mobilization/bedside range of motion
Diagnostic data:
CT abdomen and pelvis 06/06/25-2 mm calculus again seen in the left ureterovesicular junction with mild left hydronephrosis and mild left perinephric stranding, mild hepatomegaly, small fat only containing umbilical hernia, prior cholecystectomy
[2025-06-06] MEDS: TOPAMAX 100 MG PO (11:50)
[2025-06-06] MEDS: CYMBALTA DELAYED RELEASE 40 MG PO (11:50)
[2025-06-06] MEDS: WELLBUTRIN XL (24 hour extended release) 300 MG PO (11:50)
[2025-06-06] MEDS: NON-FORMULARY ITEM 1 UNIT PO (12:09)
[2025-06-06] MEDS: VALIUM INJECTION 5 MG IV (12:44)
[2025-06-06] MEDS: FLOMAX 0.4 MG PO (12:44)
--- NOTE | 2025-06-06 13:34 | PTCARENOTE ---
1030-Pt transported from PACU via bed.Awake,alert.Conversation is appropriate.+SUMNER.Independent with repositioning.c/o urinary urgency,difficulty voiding discomfort. made aware.Pt medicated with Flomax and Valium as ordered.Pt states she has relief
at this present time.Pt occasionally tearful, stating she feels like she might having a panic attack.Focused breathing and grounding decreased panic as per pt.ST noted.IVF and Levophed gtts infusing. Lungs CTA.POX 98% on RA.Pt tolerating po
intake.Voiding juan diego urine with sediment noted.Skin integrity intact.Pt's mother and father at bedside.Plan of care discussed.
--- NOTE | 2025-06-06 15:45 | W.CON.NEPH ---
Consultation
-
Date/Time Consultation Requested: June 06, 2025 at 3 PM
Date/Time Consultation Performed: June 06, 2025 at 3:45 PM
Requesting Provider: Morelia Clark
Performing Provider: Dr. Caldwell
Reason for Consultation: Acute kidney injury
Medical History
-
Chief Complaint: Acute kidney injury
History of Present Illness:
30F Obesity ADHD Depression kidney stone 3 years ago that she passed on her own who is here for Nausea vomiting left flank pain Evaluated for the same yesterday in ED, sent home with conservative mgmt for a 2 mm kidney stone. Patient's
symptoms however progressivly worsened prompting return. ED eval significant for severe sepsis (tachycardia WBC elevation Tachypnea), systolic in 60s, received fluid boluses in the ER taken emergently to the OR for stone extraction and stent
placement.
Renal consult for acute kidney injury metabolic acidosis.
Creatinine at 1.4 yesterday in the emergency room today presents with a creatinine of 2.9 bicarb of 13 with a lactic acid of 5
Patient seen in the ICU complaining of shortness of breath will on deep inspiration on room air
She is nonoliguric she got 2.6 L IV fluids in the ICU currently on a bicarbonate drip
Past Medical History
Obesity ADHD Depression previous kidney stone about 3 years ago
Social History
Tobacco: Non-Smoker
Alcohol: None
Allergies / Home Medications
Allergy/AdvReac Type Severity Reaction Status Date / Time
sulfamethoxazole (From Allergy Rash Verified 06/06/25 06:51
Bactrim)
trimethoprim (From Bactrim) Allergy Rash Verified 06/06/25 06:51
�Medication �Instructions �Recorded �Confirmed �Type
oxycodone 5 mg capsule 5 mg PO Q8H PRN Pain #10 caps 06/05/25 06/06/25 Rx
tamsulosin 0.4 mg capsule (Flomax) 0.4 mg PO DAILY #7 caps 06/05/25 06/06/25 Rx
atomoxetine 60 mg capsule 60 mg PO DAILY Mental 06/06/25 06/06/25 History
Health/Anxiety
bupropion HCl 300 mg 24 hr tablet, 300 mg PO DAILY Mental 06/06/25 06/06/25 History
extended release Health/Anxiety
duloxetine 40 mg capsule,delayed 40 mg PO DAILY Mental 06/06/25 06/06/25 History
release sprinkle Health/Anxiety
lamotrigine 25 mg tablet (Lamictal) 50 mg PO HS Mental Health/Anxiety 06/06/25 06/06/25 History
metoclopramide HCl 10 mg tablet 10 mg PO AC PRN acid reflux 06/06/25 06/06/25 History
topiramate 100 mg tablet 100 mg PO DAILY Mental 06/06/25 06/06/25 History
Health/Anxiety
Review of Systems
-
Mild shortness of breath on deep inspiration. No nausea or vomiting currently
All other systems: Negative unless noted
Physical Exam
Vital Signs
Vital Signs
Temp Pulse Resp BP Pulse Ox
98.3 F 134 39 96/70 95
06/06/25 15:20 06/06/25 15:15 06/06/25 15:15 06/06/25 15:00 06/06/25 15:15
Lab Results
WBC 16.1 10^3/uL (4.8-10.8) H 06/06/25 06:55
RBC 3.25 10^6/uL (4.20-5.40) L 06/06/25 06:55
Hgb 9.6 g/dL (12.0-16.0) L D 06/06/25 06:55
Hct 27.8 % (37.0-47.0) L 06/06/25 06:55
Plt Count 95 10^3/uL (130-400) L D 06/06/25 06:55
eGFR 21.80 06/06/25 06:55
Physical Exam
General no acute distress
HEENT no cephalic atraumatic extraocular muscle intact no scleral icterus no JVD neck supple
lungs clear to auscultation bilateral
heart regular S1-S2 positive
abdomen soft nontender positive bowel sounds
extremities no edema pulses present bilateral
Neurologically nonfocal alert and oriented x 3
Skin no lesions no abrasions no petechiae
Psych normal affect no bizarre behavior
Data Reviewed
-
CT Scan: Image Personally Visualized and interpreted
Labs: Labs Reviewed by me, Discussed with Physician, Discussed with Nurse and Discussed with Patient
Assessment/Plan
-
30F Obesity ADHD Depression here for Nausea vomiting left flank pain likely 2/2 to obstructing kidney stone. Evaluated for the same yesterday in ED, sent home with conservative mgmt. Patient's symptoms however progressivly worsened prompting
return. ED eval significant for severe sepsis (tachycardia WBC elevation Tachypnea), systolic in 60s, received fluid boluses in the ER taken emergently to the OR for stone extraction and stent placement.
Renal consult for acute kidney injury metabolic acidosis.
Creatinine at 1.4 yesterday in the emergency room today presents with a creatinine of 2.9 bicarb of 13 with a lactic acid of 5
Impression.
Acute kidney injury secondary to septic shock and renal calculi status post stent/E. coli preliminary urine
Acute metabolic acidosis
Hypocalcemia
Plan.
Continue bicarbonate drip monitor calcium as this could lower calcium level
Stat labs now to include CMP, lactic acid, ABG
Replete calcium cautiously in the setting of acute kidney injury if arrhythmia/currently sinus tachycardia
Continue pressors
Pending repeat blood work will consider rebolus in her
Panculture(preliminary urine E. coli)= antibiotic renally dosed for GFR less than 10 until we reaches steady state
Patient is nonoliguric did discuss the patient about dialysis in the event we unable to correct her metabolic derangement with developing ATN possible atypical with nonoliguric
Discussed with the ICU nurse

35 minutes critical care time
--- NOTE | 2025-06-06 16:00 | PTCARENOTE ---
Pt assessed.No change in assessment noted.Attempting phlebotomy to obtain ordered labs.
[2025-06-06 16:10] LABS: B.E. -6.4 mmol/L; HCO3 17.1 mmol/L (21-28); O2 Saturation % 98.5 % (94-98); PCO2 27 mmHg (32-35); PO2 74 mmHg (83-108)
--- NOTE | 2025-06-06 17:00 | PTCARENOTE ---
Rhonda Omer and Javi made aware of lab results.
[2025-06-06 17:12] LABS: ALT (SGPT) 153 U/L (0-35); AST (SGOT) 126 U/L (14-36); Albumin 2.6 g/dl (3.5-5.0); Alkaline Phosphatase 87 U/L (38-126); Blood Urea Nitrogen 31 mg/dl (7-17); Calcium 6.7 mg/dl (8.4-10.2); Carbon Dioxide 20 mmol/L (22-30); Chloride 107 mmol/L (98-107); Estimated Creatinine Clearance 37 ml/min; Glucose 124 mg/dl (70-99); Potassium 3.6 mmol/L (3.5-5.1); Sodium 135 mmol/L (135-145); Total Protein 4.9 g/dl (6.3-8.2); eGFR 28.79
[2025-06-06 17:23] LABS: D-Dimer 13.41 ug/mlFEU (0.00-0.50)
[2025-06-06] MEDS: LR 1000 IV (17:44)
[2025-06-06] MEDS: SODIUM BICARBONATE IV (17:44)
[2025-06-06] MEDS: CALCIUM GLUCONATE 100 IV (17:44)
[2025-06-06] MEDS: HEPARIN 5000 UNITS SC (17:46)
[2025-06-06] MEDS: STERILE WATER FOR INJECTION 10 ML IV (17:47)
[2025-06-06 18:05] LABS: Vitamin D, 25-OH*** 18.5 ng/mL (30-80)
[2025-06-06] MEDS: COMPAZINE 5 MG IV ×2 (18:45→23:48)
[2025-06-06] MEDS: VANCOCIN 200 IV (18:50)
[2025-06-06 19:34] LABS: INR 2.06; PT 23.7 Sec (11.4-14.6)
[2025-06-06 19:35] LABS: APTT 40.9 Sec (23.4-35.0)
[2025-06-06] MEDS: TYLENOL 650 MG PO (19:50)
[2025-06-06] MEDS: LAMICTAL 50 MG PO (19:55)
[2025-06-06] MEDS: HEPARIN 25000 UNITS/250 ML IV (20:27)
[2025-06-06] MEDS: DILAUDID 0.25 MG IV ×2 (20:34→23:47)
[2025-06-06 21:26] LABS: Hematocrit 26.8 % (37.0-47.0); Hemoglobin 9.6 g/dL (12.0-16.0); Mean Corp Hgb Conc. 35.8 g/dL (33.0-37.0); Mean Corpuscular Volume 81.0 fL (81.0-99.0); Platelet Count 74 10^3/uL (130-400); Red Cell Dist. Width 13.3 % (11.5-14.5)
--- NOTE | 2025-06-06 21:26 | PTCARENOTE ---
PICC line placed and confirmed via XRAY. Heparin/Levo/LR tubings changed and now infusing through PICC. Pt updated on plan of care. Will monitor.
[2025-06-07] VITALS (50 sets, daily range): BP systolic 78–119; BP diastolic 55–85; BMI 34.2
--- NOTE | 2025-06-07 00:58 | PTCARENOTE ---
Voiding cloudy brown urine. Urine labs sent as ordered. Otherwise assessment remains unchanged. Will monitor
[2025-06-07] MEDS: LR 1000 IV ×4 (03:12→23:18)
--- NOTE | 2025-06-07 03:22 | PTCARENOTE ---
Pt resting comfortably overnight with PRN Dilaudid for pain. Afebrile. ST on monitor. BP goals maintained with Levophed gtt. Heparin gtt per protocol. AM labs pending. 2L placed overnight for sat 86% when asleep. Tolerating regular diet, compazine
for nausea. Voiding on bedpan, dark cloudy brown urine. Will monitor.
[2025-06-07 03:35] LABS: Hematocrit 27.4 % (37.0-47.0); Hemoglobin 9.7 g/dL (12.0-16.0); Mean Corp Hgb Conc. 35.4 g/dL (33.0-37.0); Mean Corpuscular Volume 82.5 fL (81.0-99.0); Platelet Count 91 10^3/uL (130-400); Red Cell Dist. Width 13.2 % (11.5-14.5)
[2025-06-07 03:57] LABS: ALT (SGPT) 183 U/L (0-35); AST (SGOT) 171 U/L (14-36); Albumin 2.8 g/dl (3.5-5.0); Alkaline Phosphatase 114 U/L (38-126); Blood Urea Nitrogen 35 mg/dl (7-17); Calcium 7.6 mg/dl (8.4-10.2); Carbon Dioxide 18 mmol/L (22-30); Chloride 109 mmol/L (98-107); Estimated Creatinine Clearance 43 ml/min; Glucose 78 mg/dl (70-99); Magnesium 1.6 mg/dl (1.6-2.3); Potassium 3.8 mmol/L (3.5-5.1); Sodium 137 mmol/L (135-145); Total Protein 5.3 g/dl (6.3-8.2); eGFR 34.04
[2025-06-07 04:00] LABS: APTT > 200 Sec (23.4-35.0)
[2025-06-07] MEDS: STERILE WATER FOR INJECTION 10 ML IV (05:12)
[2025-06-07] MEDS: MAXIPIME 2000 MG IV (05:12)
[2025-06-07] MEDS: TYLENOL 650 MG PO ×2 (06:52→15:10)
[2025-06-07] MEDS: FLOMAX 0.4 MG PO (07:30)
[2025-06-07] MEDS: TOPAMAX 100 MG PO (07:30)
[2025-06-07] MEDS: WELLBUTRIN XL (24 hour extended release) 300 MG PO (07:30)
[2025-06-07] MEDS: CYMBALTA DELAYED RELEASE 40 MG PO (07:31)
[2025-06-07] MEDS: VITAMIN D3 (cholecalciferol) 25 MCG PO (07:31)
[2025-06-07] MEDS: PROTONIX 40 MG PO (07:31)
--- NOTE | 2025-06-07 07:36 | W.PN.INTV ---
Today's Communication / Plan
Recommendations
Heparin drip
Check V/Q
Check echocardiogram
Adjust antibiotics
Monitor renal function as well as LFTs
Assessment
-
30-year-old former smoking female with history of obesity, ADHD, and depression presented with nausea, vomiting, left flank pain due to obstructing renal calculi felt to have urosepsis and went to the OR for stone removal/stent-last pattern grader consulted
for urosepsis/critical care management 06/06/25..
Urosepsis with shock unresponsive to fluids requiring pressors
Left obstructing renal calculi
Status post left ureteroscopy, stone removal and stenting with purulent urine upon relief of obstruction 06/06/2025-Dr. Oakley
Mild pleurisy, bndvnnzbk-R-kurbh positive-heparin empirically initiated-await V/Q, lower extremity ultrasound and echo
JUAN
Transaminitis
Metabolic acidosis
Lactic acidosis
Hypocalcemia
Leukocytosis-WBC 16.1
Njjwan-fkpamriqio-ljarmufxtx 9.6
Thrombocytopenia-platelet 95
Conditions present prior to admission:
Obesity.
Depression.
ADHD.
Former smoker-less than [id number]
Plan
Improving but remains critically ill on pressors
High flow oxygen if needed-currently on 2 L - 95% saturation
BiPAP if necessary-has not needed
Intubate and mechanically ventilate if necessary
Aspiration precautions
Nebulizers if needed-currently not bronchospastic
With atypical chest pain, mild pleurisy, recent sedentary existence and D-dimer positive-empiric heparin
Lower extremity ultrasound 06/07/2025-negative for DVT
VQ scan 06/07/2025-pending
Echocardiogram 06/07/2025-pending
Cultures reviewed
Urine with E. coli
Blood cultures with E. coli
Urine cultures from the day before admission 06/05/2025-E. coli
Empiric antibiotics-vancomycin and cefepime-narrow antibiotics to ceftriaxone daily-renally adjust for GFR less than 10
Monitor leukocytosis
Status post appropriate fluid resuscitation
Lactate normalized
Norepinephrine wean
Monitor renal function-slowly improving
Nephrology evaluation noted-correspondence reviewed
Follow LFTs
Follow hemoglobin and platelet count
Transfuse if needed
If persistently hypotensive then consider checking random cortisol-hydrocortisone if random less than 3, if 3-15 then consider ACTH stimulation test
If persistently hyperthermic then correcting hyperthermia can decrease pressor requirements, increased chances of reversal of shock and decrease mortality
DVT prophylaxis-heparin initiated with renal failure
Early nutrition if possible
Early mobilization/bedside range of motion
Outpatient pulmonary/sleep disorders follow-up
Dr. Egan updated mother at the bedside and again during multidisciplinary rounds on 06/07/2025
Critical care statement: A total of 45 minutes of critical care time was provided for this patient today. This includes management of unstable vital signs, evaluation of the patient at bedside, reviewing the patient's pertinent medical records
including radiographs, pressor management, microbiology, laboratory evaluations, and discussion with primary team, consultants, pharmacy, nutrition, physical therapy, case management, charge nurse, critical care nursing, and respiratory therapy.
Diagnostic data:
CT abdomen and pelvis 06/06/25-2 mm calculus again seen in the left ureterovesicular junction with mild left hydronephrosis and mild left perinephric stranding, mild hepatomegaly, small fat only containing umbilical hernia, prior cholecystectomy
Subjective Dataa
Subjective Data
Date of Service:
Date of Service: June 07, 2025
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
Subjective:
Feels a little better, less short of breath, no chest pain or abdominal pain, less nausea but not hungry
Review of Systems
General: Other (Per HPI)
Objective Data
Data Reviewed
Vital Signs / I&O / Oxygen:
Vital Signs
Temp Pulse Resp BP Pulse Ox
98.1 F 105 31 92/68 94
06/07/25 00:30 06/07/25 06:45 06/07/25 06:45 06/07/25 06:30 06/07/25 06:45
Intake and Output
06/06/25 06/07/25 06/08/25
06:59 06:59 06:59
Intake Total 5187.8 / 5187.8
Output Total 3025 / 3025
Balance 2162.8 / 2162.8
SaO2 94
Nasal Cannula flow liters per 2
minute
Physical Exam
General: Respiratory Distress (n) and Comfortable
HEENT: Normocephalic, Anicteric and Moist Mucous Membranes
Cardiovascular: Regular Rhythm
Respiratory: Wheeze (n), Crackles (n), Rhonchi (n), Non-Labored Respirations, Accessory Resp Muscle Use (n) and Stridor (n)
GI: Soft, Non Distended and Non Tender
Neurology: Awake, Alert and No Motor Deficits
Skin: Warm, Good Color, Cyanosis (n), Jaundice (n) and Rash (n)
Labs/Micro/Reports
Lab Data
06/07/25 03:12
06/07/25 03:12
Laboratory Results
06/06/25 06/06/25 06/06/25
16:03 16:42 18:24
PT 23.7 H Cancelled
INR 2.06 Cancelled
APTT 40.9 H Cancelled
pH 7.41
pCO2 27 L
pO2 74 L
HCO3 17.1 L
O2 Delivery Level
06/07/25
03:12
PT
INR
APTT > 200 H*
pH
pCO2
pO2
HCO3
O2 Delivery Level
Microbiology
06/06/25 06:55 Blood/Venous Blood Culture - Preliminary
No Growth in 24 hours- Final report to follow
06/06/25 06:55 Blood/Venous Blood Culture - Preliminary
No Growth in 24 hours- Final report to follow
--- NOTE | 2025-06-07 07:52 | W.PN.HOSP.TC ---
Today's Communication/Plan
-
see a/p
Assessment / Plan
Assessment / Plan
Physical Exam
General: No pallor, cyanosis, or jaundice. Obese no acute distress, appears comfortable at this time.
HEENT: Throat clear. PERRLA Normocephalic atraumatic
NECK: Supple. No JVD Carotid Bruits
RESPIRATORY: Lungs clear to auscultation. No crackles wheezes stridor
CVS: S1, S2 normal. RRR. No murmur, rub or gallop.
ABDOMEN: Soft, non-tender. No distension. Decreased bowel sounds. Left sided flank pain/costovertebral angle tenderness significantly improved/resolved
EXTREMITIES: No peripheral cyanosis or edema.
DATA PROCESSING CLERK: AOx3. conversant coherent
Psych: Calm
IMPRESSION:
30F hx ADHD Depression Obesity here for Severe Sepsis 2/2 left obstructing kidney stone with associate JUAN and Liver Injury. Planned for urgent OR stenting and admission to ICU for closer monitoring and pressor support as needed.
PLAN:
#Severe Sepsis 2/2 left obstructing kidney stone with associate JUAN and Liver Injury
ICU admit
Stoneworking Belt Sander eval
Urology eval appreciated planned for OR stenting
Levophed prn MAP>65, wean as tolerated
Nephro eval appreciated
cont IVF support
monitor renal function and LFTs
Urine Blood cx's pos for E. coli pansensitive
empiric Vanc Cefipime narrowed to ceftriaxone
#Elevated D-Dimer likely 2/2 septic Shock
#Acute Hypoxia
wean O2 supplementation as tolerated
ECHO appreciated moderate reduced Ejection Fraction 40%
Venous Duplex neg for DVT
VQ scan low probability PE
empiric hep gtt since discontinued
#Metabolic Acidosis likely 2/2 Lactic acidosis
IVF support
trend lactic acid
Resolving
#Vit D deficiency
#Hypocalcemia
monitor and replete as necessary
Vit D supplementation
#Hx ADHD, Depression
cont home atomoxetine bupropion duloxetine Lamictal
DVT ppx SCDs Heparin
Full Code
Discussed with patient and patient's mother Sondra
Total Critical Care Time__40___ minutes. I was immediately available to the patient and staff. I personally examined, reviewed labs, diagnostic images/reports, interpretations, treatment plans, discussed patient care with other providers and
family or caregivers (if patient is unable to make decisions), entered orders as appropriate and documented the medical record.
Anticipated Discharge: > 48 hours
Subjective/Interval History
-
Date of Service: June 07, 2025
Overall symptomatically improved, pain and dysuria significantly less. Tolerating diet. Weaning down on pressor
Objective Data
-
Labs:
Laboratory Results
06/06/25 06/07/25 06/07/25
21:00 03:12 12:00
WBC 23.4 H 24.2 H
Hgb 9.6 L 9.7 L
Hct 26.8 L 27.4 L
Plt Count 74 L D 91 L D
APTT > 200 H* Pending
Sodium 137
Potassium 3.8
Chloride 109 H
Carbon Dioxide 18 L
BUN 35 H
Creatinine 2.0 H
Glucose 78
Calcium 7.6 L
Total Bilirubin 1.3
AST 171 H
ALT 183 H
Alkaline Phosphatase 114
Vital Signs:
Vital Signs
Temp Pulse Resp BP Pulse Ox
98.1 F 93 24 93/70 95
06/07/25 00:30 06/07/25 07:31 06/07/25 07:31 06/07/25 07:31 06/07/25 07:50
I&O
06/06/25 06/07/25 06/08/25
06:59 06:59 06:59
Intake Total 5187.8 / 5353.6 165.8 / 165.8
Output Total 3025 / 3025
Balance 2162.8 / 2328.6 165.8 / 165.8
--- NOTE | 2025-06-07 07:52 | PTCARENOTE ---
Received pt sleeping.Awakens to voice.Speech is appropriate.Denies pain at this time.Repositioning self in bed independently.SR noted.Right PICC intact with LR, Heparin and Levophed gtts.Lungs CTA.No tachypnea or SOB noted.O2 2l NC.POX 95%No BM.Pt
has not voided at this time.Plan of care discussed.Pt for 2D Echo and VQ scan as per MD order.
--- NOTE | 2025-06-07 08:11 | W.PN.NEPH.PH ---
Today's Communication / Plan
-
Maintain lactated Ringer's
Follow-up BMP
Pressor support to keep MAP 65 or greater to augment renal artery perfusion
Kidney function improved with creatinine down to 2
Assessment/Plan
-
30F Obesity ADHD Depression here for Nausea vomiting left flank pain likely 2/2 to obstructing kidney stone. Evaluated for the same yesterday in ED, sent home with conservative mgmt. Patient's symptoms however progressivly worsened prompting
return. ED eval significant for severe sepsis (tachycardia WBC elevation Tachypnea), systolic in 60s, received fluid boluses in the ER taken emergently to the OR for stone extraction and stent placement.
Renal consult for acute kidney injury metabolic acidosis.
Creatinine at 1.4 yesterday in the emergency room today presents with a creatinine of 2.9 bicarb of 13 with a lactic acid of 5
Impression.
Acute kidney injury secondary to septic shock and renal calculi status post stent/E. coli preliminary urine
Status post left ureteroscopy, stone removal and stenting with purulent urine upon relief of obstruction 06/06/2025-Dr. Oakley
Acute metabolic acidosis
Hypocalcemia
Thrombocytopenia
Plan.
Will continue lactated Ringer's at 150 cc/h given postobstructive diuresis and metabolic acidosis persists (lactic acidosis)
Creatinine improved to 2 and remains nonoliguric ~3 liters
Maintaining low-dose pressor support to keep MAP 65 or greater
Remains on cefepime for E. coli urosepsis and bacteremia
Panculture(preliminary urine E. coli)= antibiotic renally dosed for GFR less than 10 until we reaches steady state
Patient is nonoliguric did discuss the patient about dialysis in the event we unable to correct her metabolic derangement with developing ATN possible atypical with nonoliguric
Discussed with the ICU nurse

31 minutes critical care time
-
-
Date of Service: June 07, 2025
CC / HPI / ROS
-
Chief Complaint:
JUAN
History of Present Illness:
Creatinine down to 2
Hemodynamically labile on pressor support
Metabolic acidosis persist on lactated Ringer's
Review of Systems:
Nonoliguric
No chest pain or shortness of breath
afebrile
Labs
-
Labs:
WBC 24.2 10^3/uL (4.8-10.8) H 06/07/25 03:12
RBC 3.32 10^6/uL (4.20-5.40) L 06/07/25 03:12
Hgb 9.7 g/dL (12.0-16.0) L 06/07/25 03:12
Hct 27.4 % (37.0-47.0) L 06/07/25 03:12
Plt Count 91 10^3/uL (130-400) L D 06/07/25 03:12
Sodium 137 mmol/L (135-145) 06/07/25 03:12
Potassium 3.8 mmol/L (3.5-5.1) 06/07/25 03:12
Chloride 109 mmol/L (98-107) H 06/07/25 03:12
Carbon Dioxide 18 mmol/L (22-30) L 06/07/25 03:12
BUN 35 mg/dl (7-17) H 06/07/25 03:12
Creatinine 2.0 mg/dL (0.6-1.0) H 06/07/25 03:12
eGFR 34.04 06/07/25 03:12
Glucose 78 mg/dl (70-99) 06/07/25 03:12
Calcium 7.6 mg/dl (8.4-10.2) L 06/07/25 03:12
Phosphorus 4.8 mg/dl (2.5-4.5) H 06/07/25 03:12
Albumin 2.8 g/dl (3.5-5.0) L 06/07/25 03:12
Physical Exam
-
Vital Signs:
Vital Signs
Temp Pulse Resp BP Pulse Ox
98.1 F 93 24 93/70 95
06/07/25 00:30 06/07/25 07:31 06/07/25 07:31 06/07/25 07:31 06/07/25 07:50
Cardiovascular:: Regular rate and rhythm
Respiratory:: Bilateral: CTA
Lung Excursion:: Normal
Abdomen:: Nontender
Bowel Sounds:: Normal
Extremity Edema:: None: Bilateral:
Pearson Catheter: No
--- NOTE | 2025-06-07 08:26 | W.PN.URO.CBU ---
Today's Communication / Plan
-
tailor abx per micro results
Assessment / Plan
-
obstructing left ureteral stone with E. coli urosepsis, s/p emergency endoscopic removal of stone and placement of ureteral stent
Diagnosis
-
Date of Service: June 07, 2025
-
Patient Diagnosis:
obstructing left ureteral stone with E. coli urosepsis, s/p emergency endoscopic removal of stone and placement of ureteral stent
Post Op Day: 1
Objective
-
Vital Signs
Temp Pulse Resp BP Pulse Ox
98.0 F 93 24 93/70 95
06/07/25 08:00 06/07/25 07:31 06/07/25 07:31 06/07/25 07:31 06/07/25 07:50
Intake and Output
06/06/25 06/07/25 06/08/25
06:59 06:59 06:59
Intake Total 5187.8 / 5353.6 331.6 / 331.6
Output Total 3025 / 3025
Balance 2162.8 / 2328.6 331.6 / 331.6
Intake:
IV fluids (Total) 5187.8 / 5353.6 331.6 / 331.6
D5w 1,000 ml @ 150 mls/hr IV . 900 / 900
Q7H40M JUAN with Sodium
Bicarbonate 150 Meq Rx#:
[id number]
Heparin 124 / 136 24 / 24
Levophed 338.8 / 342.6 7.6 / 7.6
Lr 1,000 ml @ 150 mls/hr IV . 2250 / 2400 300 / 300
Q6H40M JUAN Rx#:[id number]
NS 1500 / 1500
normosol 75 / 75
Output:
Urine, Voided 3025 / 3025
Laboratory Results
06/07/25 03:12
06/07/25 03:12
E. coli in urine and likely in blood
Physical Exam
-
General - well developed, well nourished, no acute distress
Chest - clear bilaterally
Abdomen - soft, non-tender, positive bowel sounds, no CVAT, no incisional pain or distention
Genitalia - normal
Rectal - normal
Skin - warm & dry with no rash
Neuro - AOx3, no motor deficits
Extremities - no clubbing, no cyanosis, no edema
Incision - clean, dry
Dressing - clean, dry, intact
--- NOTE | 2025-06-07 08:50 | W.PN.INTV ---
Documented by User: Maria Del Carmen Miranda MD, Resident 06/07/25 10:49
Today's Communication / Plan
Recommendations
plan reviewed with attending
Assessment
-
30-year-old former smoking female with history of obesity, ADHD, and depression presented with nausea, vomiting, left flank pain due to obstructing renal calculi felt to have urosepsis and went to the OR for stone removal/stent-etcher electrolytic consulted
for urosepsis/critical care management 06/06/25.
Stones removed with purulent urine passing after. Leucocytosis increased to 24.2. Lactic acid improving. Pt is clinically improving with resolved presenting symptoms. D dimer elevated yesterday. With continued SOB, tachycardia, and tachypnea and
negative CXR, heparin drip started and V/Q scan ordered.
Urosepsis with shock unresponsive to fluids requiring pressors
Left obstructing renal calculi
Status post left ureteroscopy, stone removal and stenting with purulent urine upon relief of obstruction 06/06/2025-Dr. Oakley
Mild pleurisy, [id number]-[id number] pending
JUAN
Transaminitis
Metabolic acidosis
Lactic acidosis
Hypocalcemia
Leukocytosis-WBC 16.1
Nxzwcb-ndmdsikwnj-gksppjxjla 9.6
Thrombocytopenia-platelet 95
Conditions present prior to admission:
Obesity.
Depression.
ADHD.
Former smoker-less than [id number]
Plan
Neuro:
Awake and oriented x3
No sedation
Monitor pain control.
Continue home atomoxetine, bupropion, duloxetine, lamotrigine, topirimate
Pulm:
D-dimer elevated. Chest pain with deep breaths in setting of reduced ambulation. No clinical symptoms of DVT. LE Us negative for clot. V/Q scan ordered to evaluated for clot.
Bibasilar crackles likely atelectasis associated with splinting. Encourage IS
Oxygen as needed. Currently saturating appropriately on room air
BiPAP if necessary
Intubate and mechanically ventilate if necessary
Aspiration precautions
Nebulizers if needed
Covid swab for SOB r/o.
Cardio:
Hypotension on pressors MAP 87 in setting of septic shock improving. Pressors weaned to 2 of michelle from 14.
IVF resuscitation.
Pressors as needed for MAP goal of 65-Norepinephrine first, then Vasopressin and consider Angiotensin II if continues to be hypotensive
EKG demonstrated sinus tachycardia
ECG demonstrated QTc 489. Replete electrolytes appropriately, Vit D, Mg, K.
Echo today
ID:
Blood cultures grew E Coli
Urine cultures from the day before admission 06/05/2025-E. coli
Empiric antibiotics transitioned to ceftriaxone
Monitor leukocytosis trend. Increased as expected with stone removal
:
Monitor renal function. Cr improving
Urology removed stones.
Nephrology following
GI:
Follow-up LFTs. Elevated in setting of septic shock
Denies current nausea/vomiting.
Diet as tolerated
2 small bouts of loose stool. Monitor for continuous loose stools.
Heme:
Follow hemoglobin and platelet count
Transfuse if needed
Heparin drip. Bed rest until V/Q scan. Ambulation encouraged if negative.
Endo:
If persistently hypotensive then consider checking random cortisol-hydrocortisone if random less than 3, if 3-15 then consider ACTH stimulation test
No hx thyroid dx or DM
If persistently hyperthermic then correcting hyperthermia can decrease pressor requirements, increased chances of reversal of shock and decrease mortality
DVT prophylaxis-heparin initiated with renal failure
Early nutrition if possible
Early mobilization/bedside range of motion
Diagnostic data:
CT abdomen and pelvis 06/06/25-2 mm calculus again seen in the left ureterovesicular junction with mild left hydronephrosis and mild left perinephric stranding, mild hepatomegaly, small fat only containing umbilical hernia, prior cholecystectomy
Subjective Dataa
Subjective Data
Date of Service:
Date of Service: June 07, 2025
Subjective:
Pt reports improving symptoms of reduced urinary frequency, improved SOB. She does have continued dysuria. Denies chills, sweats. 2 small bouts of loose stool.
Objective Data
Data Reviewed
Vital Signs / I&O / Oxygen:
Vital Signs
Temp Pulse Resp BP Pulse Ox
98.0 F 93 24 93/70 95
06/07/25 08:00 06/07/25 07:31 06/07/25 07:31 06/07/25 07:31 06/07/25 07:50
Intake and Output
06/06/25 06/07/25 06/08/25
06:59 06:59 06:59
Intake Total 5187.8 / 5353.6 331.6 / 331.6
Output Total 3025 / 3025
Balance 2162.8 / 2328.6 331.6 / 331.6
SaO2 95
Nasal Cannula flow liters per 2
minute
Physical Exam
General: Comfortable
HEENT: Normocephalic and Anicteric
Cardiovascular: S1-S2 and Regular Rhythm
Respiratory: Clear
GI: Soft
Neurology: AO x 3 and No Motor Deficits
Skin: Warm and Dry
Labs/Micro/Reports
Lab Data
06/07/25 03:12
06/07/25 03:12
Laboratory Results
06/06/25 06/06/25 06/06/25
16:03 16:42 18:24
PT 23.7 H Cancelled
INR 2.06 Cancelled
APTT 40.9 H Cancelled
pH 7.41
pCO2 27 L
pO2 74 L
HCO3 17.1 L
O2 Delivery Level
06/07/25
03:12
PT
INR
APTT > 200 H*
pH
pCO2
pO2
HCO3
O2 Delivery Level
Microbiology
06/06/25 06:55 Blood/Venous Blood Culture - Preliminary
Positive culture in progress
06/06/25 06:55 Blood/Venous Gram Stain - Preliminary
06/06/25 06:55 Blood/Venous Blood Culture - Preliminary
No Growth in 24 hours- Final report to follow

Documented by User: Bobby Egan MD 06/07/25 10:58
Today's Communication / Plan
Recommendations
plan reviewed with attending
I reviewed this patient's case independently and in conjunction with the resident. I personally performed the mcneil components of the evaluation and management of this critically ill patient, including the history, physical exam, and medical
decision-making. I was present during the mcneil portions of care, reviewed the resident's documentation, and participated in the ongoing management of this patient requiring critical care. I confirm the medical necessity of these services. I
agree with documented assessment and plan
Bobby Egan MD, [facility], [facility]
--- NOTE | 2025-06-07 10:10 | CARDSERVDEF ---
Echocardiogram with Definity completed after protocol screening completed. Allergies verified. Pt denies any chance of .
Patent IV site: __Left hand 22 G PC site clear___
IV site flushed with 0.9% NaCl pre and post administration.
Diluted bolus method utilized to enhance visualization of ventricular martin.
Total volume given: _2.5___ mL
Patient tolerated all procedures well without complications
--- NOTE | 2025-06-07 12:08 | PTCARENOTE ---
Pt assessed.No change in assessment noted.VQ scan and 2D Echo completed as ordered.
[2025-06-07] MEDS: MAGNESIUM OXIDE 400 MG PO (12:14)
[2025-06-07] MEDS: NON-FORMULARY ITEM 60 MG PO (12:14)
[2025-06-07] MEDS: DILAUDID 0.25 MG IV ×2 (12:19→23:19)
[2025-06-07] MEDS: COMPAZINE 5 MG IV ×2 (12:20→23:19)
--- NOTE | 2025-06-07 12:33 | CM ---
Initial assessment completed with patient with mother in room. Patient lives with her boyfriend and 3y/o son and 5y/o daughter in a 1st floor apartment with 5 steps to enter. 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 No DME. No in-home services. No HC-POA. No VA benefits. No psychiatric hospitalizations. PCP is Dr. Leela Pat. Pharmacy is [facility] in [place]. Discharge POC: Home with no needs.
--- NOTE | 2025-06-07 12:35 | PTCARENOTE ---
Pt c/o left back pain 03/13.Requested and received Dilaudid,also c/o nausea requested and received Compazine.Levophed reinitiated for MAP 65.
[2025-06-07 13:05] LABS: APTT > 200 Sec (23.4-35.0)
[2025-06-07 13:32] LABS: COVID-19 Antigen Negative (Negative)
--- NOTE | 2025-06-07 16:05 | PTCARENOTE ---
Pt assessed.No change in assessment noted.Pt assisted oob to chair with minimal assistance.Levo off for MAP 84.
[2025-06-07] MEDS: HEPARIN 5000 UNITS SC ×2 (17:09→23:18)
[2025-06-07] MEDS: ROCEPHIN 2000 MG IV (17:10)
[2025-06-07] MEDS: STERILE WATER FOR INJECTION 20 ML IV (17:10)
[2025-06-07] MEDS: FLUSH (NSS) 10 FLUSH IV ×2 (18:32)
[2025-06-07] MEDS: LAMICTAL 50 MG PO (20:07)
[2025-06-07] MEDS: KCL 20 MEQ PO (20:07)
--- NOTE | 2025-06-07 20:29 | PTCARENOTE ---
Patient aaox3, pleasant. Denies pain at this time. RN assist patient from chair to bed with standby assist x1, patient gait steady. 95% on ra, lungs cta throughout. Levo running at 2mcg, map currently 68, fluctuating from low 60's to high 60's. Call
sheppard within reach, will continue to monitor patient closely.
[2025-06-07] MEDS: LEVOPHED 250 IV (23:24)
--- NOTE | 2025-06-07 23:54 | PTCARENOTE ---
Patient assist x1 to bathroom, voided 350ml cloudy, yellow urine. Gait steady. Patient c/o pain 6/10 to left flank as well as nausea. PRN Dilaudid and compazine administered as ordered. Patient pox decreased to high 80's with sleep, o2 applied,
currently 9% on 2L o2 n/c. Call sheppard within reach, will continue to monitor.
[2025-06-08] VITALS (26 sets, daily range): BP systolic 91–129; BP diastolic 65–84; BMI 34.8
[2025-06-08 04:34] LABS: Hematocrit 26.3 % (37.0-47.0); Hemoglobin 9.2 g/dL (12.0-16.0); Mean Corp Hgb Conc. 35.0 g/dL (33.0-37.0); Mean Corpuscular Volume 84.6 fL (81.0-99.0); Platelet Count 81 10^3/uL (130-400); Red Cell Dist. Width 13.8 % (11.5-14.5)
[2025-06-08 04:54] LABS: ALT (SGPT) 134 U/L (0-35); AST (SGOT) 85 U/L (14-36); Albumin 2.4 g/dl (3.5-5.0); Alkaline Phosphatase 137 U/L (38-126); Blood Urea Nitrogen 29 mg/dl (7-17); Calcium 7.7 mg/dl (8.4-10.2); Carbon Dioxide 22 mmol/L (22-30); Chloride 113 mmol/L (98-107); Estimated Creatinine Clearance 64 ml/min; Glucose 68 mg/dl (70-99); Magnesium 2.0 mg/dl (1.6-2.3); Potassium 3.6 mmol/L (3.5-5.1); Sodium 140 mmol/L (135-145); Total Protein 4.6 g/dl (6.3-8.2); eGFR 57.09
[2025-06-08] MEDS: LR 1000 IV (05:37)
[2025-06-08 07:26] LABS: Glucose - Point of Care 69 mg/dl (70-99)
--- NOTE | 2025-06-08 07:34 | W.PN.INTV ---
Today's Communication / Plan
Recommendations
Pressors weaned
Advance diet
Increase activity
Continue antibiotics-changed to oral in the next 24-48 hours
Monitor renal function
Transfer out of ICU-call pulmonary if respiratory issues arise
Assessment
-
30-year-old former smoking female with history of obesity, ADHD, and depression presented with nausea, vomiting, left flank pain due to obstructing renal calculi felt to have urosepsis and went to the OR for stone removal/stent-head transfer clerk consulted
for urosepsis/critical care management 06/06/25.
Urosepsis with shock unresponsive to fluids requiring pressors
Left obstructing renal calculi
Status post left ureteroscopy, stone removal and stenting with purulent urine upon relief of obstruction 06/06/2025-Dr. Oakley
Mild pleurisy, mrdmmwgvv-U-mgvsi positive-heparin empirically initiated-await V/Q, lower extremity ultrasound and echo
JUAN
Transaminitis
Metabolic acidosis
Lactic acidosis
Hypocalcemia
Leukocytosis-WBC 16.1
Kextol-kzlwvkjmsg-gmmtfpxuzu 9.6
Thrombocytopenia-platelet 95
Conditions present prior to admission:
Obesity.
Depression.
ADHD.
Former smoker-less than [id number]
Plan
Patient continues to improve-now more hemodynamically stable
High flow oxygen if needed-currently on room air-95% saturation
BiPAP if necessary-has not needed
Aspiration precautions
Nebulizers if needed-currently not bronchospastic
With atypical chest pain, mild pleurisy, recent sedentary existence and D-dimer positive-empiric heparin initially-then VQ scan low probability, lower extremity ultrasound negative-heparin discontinued
Lower extremity ultrasound 06/07/2025-negative for DVT
VQ scan 06/07/2025-low probability
Echocardiogram 06/07/2025-EF 40%, no significant valvular dysfunction, global hypokinesis-suspect related to sepsis
Cultures reviewed
Urine with E. coli
Blood cultures with E. coli
Urine cultures from the day before admission 06/05/2025-E. coli
Empiric antibiotics-vancomycin and cefepime-narrow antibiotics to ceftriaxone daily-renally adjust for GFR less than 10
Monitor leukocytosis
Status post appropriate fluid resuscitation
Lactate normalized
Norepinephrine weaned off
Monitor renal function-slowly improving
Nephrology evaluation noted-correspondence reviewed
Follow LFTs
Follow hemoglobin and platelet count
Transfuse if needed
DVT prophylaxis-heparin subcutaneous
Advance nutrition-monitor hypoglycemia
Early mobilization/bedside range of motion
Patient weaned off pressors-could be transferred out of ICU-head transfer clerk will sign off-call pulmonary if respiratory issues arise
Outpatient pulmonary/sleep disorders follow-up
Outpatient repeat echocardiogram recommended
Dr. Egan updated mother at the bedside and again during multidisciplinary rounds on 06/07/2025
Reviewed the patient's pertinent medical records including radiographs, pressor management, microbiology, laboratory evaluations, and discussion with primary team, consultants, pharmacy, nutrition, physical therapy, case management, charge nurse,
critical care nursing, and respiratory therapy.
Diagnostic data:
CT abdomen and pelvis 06/06/25-2 mm calculus again seen in the left ureterovesicular junction with mild left hydronephrosis and mild left perinephric stranding, mild hepatomegaly, small fat only containing umbilical hernia, prior cholecystectomy
Subjective Dataa
Subjective Data
Date of Service:
Date of Service: June 08, 2025
Chief Complaint: Chief Librarian Branch Or Department Follow Up and Pulmonary Follow Up
Subjective:
Feels better, still not very hungry, was mildly hypoglycemic this morning, no shortness of breath, chest pain, chest congestion, abdominal pain, or nausea
Review of Systems
General: Other (Per HPI)
Objective Data
Data Reviewed
Vital Signs / I&O / Oxygen:
Vital Signs
Temp Pulse Resp BP Pulse Ox
97.8 F 99 21 94/73 98
06/08/25 07:30 06/08/25 04:30 06/08/25 04:30 06/08/25 04:30 06/08/25 04:30
Intake and Output
06/07/25 06/08/25 06/09/25
06:59 06:59 06:59
Intake Total 5187.8 / 5353.6 3799.7 / 3799.7
Output Total 3025 / 3025 2500 / 2500
Balance 2162.8 / 2328.6 1299.7 / 1299.7
SaO2 98
Nasal Cannula flow liters per 2
minute
Physical Exam
General: Respiratory Distress (n) and Comfortable
HEENT: Normocephalic, Anicteric and Moist Mucous Membranes
Cardiovascular: Regular Rhythm
Respiratory: Wheeze (n), Crackles (n), Rhonchi (n), Non-Labored Respirations, Accessory Resp Muscle Use (n) and Stridor (n)
GI: Soft, Non Distended and Non Tender
Neurology: Awake, Alert and No Motor Deficits
Skin: Warm, Good Color, Cyanosis (n), Jaundice (n) and Rash (n)
Labs/Micro/Reports
Lab Data
06/08/25 03:58
06/08/25 03:58
Laboratory Results
06/07/25
12:29
APTT > 200 H*
Microbiology
06/06/25 06:55 Blood/Venous Blood Culture - Preliminary
No Growth in 48 hours- Final report to follow
06/06/25 06:55 Blood/Venous Blood Culture - Preliminary
Escherichia coli
06/06/25 06:55 Blood/Venous Gram Stain - Preliminary
[2025-06-08 08:01] LABS: Glucose - Point of Care 68 mg/dl (70-99)
--- NOTE | 2025-06-08 08:51 | W.PN.INTV ---
Today's Communication / Plan
Recommendations
plan reviewed with attending
Assessment
-
30-year-old former smoking female with history of obesity, ADHD, and depression presented with nausea, vomiting, left flank pain due to obstructing renal calculi felt to have urosepsis and went to the OR for stone removal/stent-vegetable sorter consulted
for urosepsis/critical care management 06/06/25.
Today, pt is recovering well with improved SOB, off pressors, increasing leukocytosis but asymptomatic on current abx.
Urosepsis with shock unresponsive to fluids requiring pressors
Left obstructing renal calculi
Status post left ureteroscopy, stone removal and stenting with purulent urine upon relief of obstruction 06/06/2025-Dr. Oakley
Mild pleurisy, btesyfjot-J-mkpgb positive-heparin empirically initiated-await V/Q, lower extremity ultrasound and echo
JUAN
Transaminitis
Metabolic acidosis
Lactic acidosis
Hypocalcemia
Leukocytosis-WBC 16.1
Vrayql-sgfyfnhplj-gdsowjrzae 9.6
Thrombocytopenia-platelet 95
Conditions present prior to admission:
Obesity.
Depression.
ADHD.
Former smoker-less than 79-[id number]
Plan
Neuro:
Awake and oriented x3
No sedation
Monitor pain control.
Continue home atomoxetine, bupropion, duloxetine, lamotrigine, topirimate
Pulm:
D-dimer elevated. Chest pain with deep breaths in setting of reduced ambulation. No clinical symptoms of DVT. LE Us negative for clot. V/Q scan lows suspicion for clot. Off heparin drip
Bibasilar crackles likely atelectasis associated with splinting. Encourage IS
Oxygen as needed. Currently saturating appropriately on room air
BiPAP if necessary
Intubate and mechanically ventilate if necessary
Aspiration precautions
Nebulizers if needed
Cardio:
Hypotension on pressors MAP 87 in setting of septic shock improving. Pressors weaned off.
IVF resuscitation.
Pressors as needed for MAP goal of 65-Norepinephrine first, then Vasopressin and consider Angiotensin II if continues to be hypotensive
EKG demonstrated sinus tachycardia
ECG demonstrated QTc 489. Replete electrolytes appropriately.
Echo demonstrated global hypokinesis and EF<40% in setting of shock.
ID:
Blood cultures grew E Coli
Urine cultures from the day before admission 06/05/2025-E. coli
Empiric antibiotics transitioned to ceftriaxone
Monitor leukocytosis trend. Increased as expected with stone removal
:
Monitor renal function. Cr improving
Urology removed stones.
Nephrology following
GI:
Follow-up LFTs. Elevated in setting of septic shock
Denies current nausea/vomiting.
Diet as tolerated
2 small bouts of loose stool. Monitor for continuous loose stools. No loose stools today
Heme:
Follow hemoglobin and platelet count
Transfuse if needed
Heparin drip. Bed rest until V/Q scan. Ambulation encouraged if negative.
Endo:
If persistently hypotensive then consider checking random cortisol-hydrocortisone if random less than 3, if 3-15 then consider ACTH stimulation test
No hx thyroid dx or DM
If persistently hyperthermic then correcting hyperthermia can decrease pressor requirements, increased chances of reversal of shock and decrease mortality
Diagnostic data:
CT abdomen and pelvis 06/06/25-2 mm calculus again seen in the left ureterovesicular junction with mild left hydronephrosis and mild left perinephric stranding, mild hepatomegaly, small fat only containing umbilical hernia, prior cholecystectomy
Subjective Dataa
Subjective Data
Date of Service:
Date of Service: June 08, 2025
Chief Complaint: Conductor Yard Follow Up and Pulmonary Follow Up
Subjective:
Pt reports feeling well today depsite some tiredness from not sleeping well the last few days. She denies SOB, chest pain.
Objective Data
Data Reviewed
Vital Signs / I&O / Oxygen:
Vital Signs
Temp Pulse Resp BP Pulse Ox
97.8 F 99 21 94/73 98
06/08/25 07:30 06/08/25 04:30 06/08/25 04:30 06/08/25 04:30 06/08/25 04:30
Intake and Output
06/07/25 06/08/25 06/09/25
06:59 06:59 06:59
Intake Total 5187.8 / 5353.6 3799.7 / 3799.7
Output Total 3025 / 3025 2500 / 2500
Balance 2162.8 / 2328.6 1299.7 / 1299.7
SaO2 98
Nasal Cannula flow liters per 2
minute
Physical Exam
General: Comfortable
HEENT: Normocephalic, Anicteric and Moist Mucous Membranes
Cardiovascular: Regular Rhythm
Respiratory: Crackles (n) and Non-Labored Respirations
GI: Soft, Non Distended and Non Tender
Neurology: Awake, Alert and No Motor Deficits
Skin: Warm and Good Color
Labs/Micro/Reports
Lab Data
06/08/25 03:58
06/08/25 03:58
Laboratory Results
06/07/25
12:29
APTT > 200 H*
Microbiology
06/06/25 06:55 Blood/Venous Blood Culture - Preliminary
No Growth in 48 hours- Final report to follow
06/06/25 06:55 Blood/Venous Blood Culture - Preliminary
Escherichia coli
06/06/25 06:55 Blood/Venous Gram Stain - Preliminary
[2025-06-08] MEDS: NON-FORMULARY ITEM 60 MG PO (08:55)
--- NOTE | 2025-06-08 08:55 | W.PN.URO.CBU ---
Today's Communication / Plan
-
abx per med team -- course should extend to complete 14-day course, during which ureteral stent will be extacted
Assessment / Plan
-
obstructing left ureteral stone with E. coli urosepsis, s/p emergency endoscopic removal of stone and placement of ureteral stent
improving -- off pressors
Diagnosis
-
Date of Service: June 08, 2025
-
Patient Diagnosis:
Post Op Day:
Patient Diagnosis:
obstructing left ureteral stone with E. coli urosepsis, s/p emergency endoscopic removal of stone and placement of ureteral stent
Post Op Day: 2
Subjective
-
'I feel better.'
Objective
-
Vital Signs
Temp Pulse Resp BP Pulse Ox
97.8 F 99 21 94/73 98
06/08/25 07:30 06/08/25 04:30 06/08/25 04:30 06/08/25 04:30 06/08/25 04:30
Intake and Output
06/07/25 06/08/25 06/09/25
06:59 06:59 06:59
Intake Total 5187.8 / 5353.6 3799.7 / 3799.7
Output Total 3025 / 3025 2500 / 2500
Balance 2162.8 / 2328.6 1299.7 / 1299.7
Intake:
IV fluids (Total) 5187.8 / 5353.6 3799.7 / 3799.7
D5w 1,000 ml @ 150 mls/hr IV . 900 / 900
Q7H40M JUAN with Sodium
Bicarbonate 150 Meq Rx#:
[id number]
Heparin 124 / 136 72 / 72
Levophed 338.8 / 342.6 127.7 / 127.7
Lr 1,000 ml @ 150 mls/hr IV . 2250 / 2400 3600 / 3600
Q6H40M [facility] Rx#:[id number]
NS 1500 / 1500
normosol 75 / 75
Output:
Liquid stool amount 100 / 100
Rectum 100 / 100
Urine, Voided 3025 / 3025 2400 / 2400
Other:
Number of approximated LARGE 1
amounts of urine
Laboratory Results
06/08/25 03:58
06/08/25 03:58
gtz-sensitive E. coli in urine and blood
Physical Exam
-
General - well developed, well nourished, no acute distress
[2025-06-08] MEDS: CYMBALTA DELAYED RELEASE 40 MG PO (08:56)
[2025-06-08] MEDS: TOPAMAX 100 MG PO (08:58)
[2025-06-08] MEDS: FLOMAX 0.4 MG PO (08:58)
[2025-06-08] MEDS: PROTONIX 40 MG PO (08:58)
[2025-06-08] MEDS: WELLBUTRIN XL (24 hour extended release) 300 MG PO (08:58)
[2025-06-08] MEDS: HEPARIN 5000 UNITS SC ×2 (08:59→16:19)
[2025-06-08] MEDS: VITAMIN D3 (cholecalciferol) 25 MCG PO (08:59)
--- NOTE | 2025-06-08 09:00 | PTCARENOTE ---
Rec'd pt at 0730 awake alert and oriented resting in bed. Affect is sl flat but pt does interact. Denies pain. Denies dizziness or headache. Speech is clear. Skin is pink wm and dry. Respirs are unlabored. Pt back on RA with sats of 94%. BS are
clear- very sl decreased at the bases. Monitor SR. + pulses. DP pulses sl weak but palp. Denies chest pain. VS as documented. IV LEvophed remains off. Abd is round and soft with + BS. Pts glucose on AM bloodwork was 68 Rechecked at 0716 and was 69.
Pt given some applejuice to drink and encouraged to ordered breakfast. Drank some of the applejuice and BS rechecked at 0750 and was 69. Awaiting breakfast. Asymptomatic. Dr. Egan aware. Pt assisted to the bathroom to void and voided cloudy
yellow urine in the toilet. Gait ambulating is slow but steady. Pt admitted feeling a little shaky with walking then ok. IV LR infusing at 150 ml/hr via R arm DL picc. SIte wnl. Capped ints intact in L arm. Pt currently resting oob in the chair.
Plan of care reviewed. Call sheppard in reach.
--- NOTE | 2025-06-08 09:13 | PN.CDI ---
CDI
- -
CDI:
Physician Documentation Request
Admit Date: 06/06/25 08:20
Dear Doctor Eduardo,
Please review the following and provide your response in the progress notes.
Clinical Indicators:
Pt admitted with with Severe Sepsis 2/2 left obstructing kidney stone with associate JUAN and Liver Injury
Documented per post op note ,' Operative Findings: impacted distal left ureteral stone; purulent urine upon relief of obstruction...'
Documented per aerobics teacher 06/07, ' Blood cultures grew E Coli Urine cultures from the day before admission 06/05/2025-E. coli Empiric antibiotics transitioned to ceftriaxone...'
Urinalysis per 06/05 visit below
06/05/25
12:20
Urine Color Zachary
Urine Clarity Slightly cloudy
Urine Ketones 1+ A
Ur Occult Blood Reflex 4+ A
Urine Nitrite (Reflex) Positive A
Urine Bilirubin 3+ A
Urine Urobilinogen 4+ A
Leukocyte Esterase Rfl 3+ A
Urine RBC 3-6 A
Urine WBC (Reflex) 50-60 A
Urine Bacteria (Reflex) Few A
Urine Albumin (Reflex) 2+ A
Please provide a diagnosis for the above findings/treatment :
UTI
Ecoli urine culture only
Other ( please specify)
Use of terms such as suspected, likely, concern for, or probable (associated with a specific diagnosis that is being evaluated, monitored, or treated as if it exists) are acceptable and can be coded in the inpatient setting, when documented at the
time of discharge.
Thank you,
Adele Arboleda RN
CDI Specialist
[place] [facility]
Please use your independent medical judgment in providing your response.
--- NOTE | 2025-06-08 09:22 | PN.CDI ---
CDI
- -
CDI:
Physician Documentation Request
Admit Date: 06/06/25 08:20
Dear Doctor Eduardo,
Please review the following and provide your response in the progress notes.
Clinical Indicators:
Pt admitted with with Severe Sepsis 2/2 left obstructing kidney stone with associate JUAN and Liver Injury/ Septic shock
Documented per H&P and progress notes 06/07, ' Liver Injury...Levophed prn MAP>65, wean as tolerated...cont IVF support monitor renal function and LFTs...'
06/06/25
06:50 06/06/25
07:42 06/06/25
08:40
MAP (cuff-Thang Monitor) 51 35 47
06/06/25
08:44 06/06/25
08:44
MAP (cuff-Thang Monitor) 59 59
06/06/25 06/06/25
06:55 16:42
AST 162 H 126 H
ALT 163 H 153 H
Based on the above, could you clarify in the progress notes, the appropriate diagnosis, if significant, that supports the above abnormalities and additional evaluation, monitoring and/or treatment rendered:
Shock liver
Liver injury only
Other ( please specify)
Use of terms such as suspected, likely, concern for, or probable (associated with a specific diagnosis that is being evaluated, monitored, or treated as if it exists) are acceptable and can be coded in the inpatient setting, when documented at the
time of discharge.
Thank you,
Adele Arboleda RN
CDI Specialist
[place] [employer]
Please use your independent medical judgment in providing your response.
--- NOTE | 2025-06-08 10:20 | PTCARENOTE ---
Remains sitting oob in the chair. Did not wind up eating breakfast as there was a slice of orange on her tray that made the [place] toast taste like orange which she stated she does not like. Said she drank the chocolate milk and ate a few Oreo's, BS
recheck 89 and IV fluids due to be changed. Call sheppard in reach.
[2025-06-08 10:24] LABS: Glucose - Point of Care 89 mg/dl (70-99)
[2025-06-08] MEDS: KCL 40 MEQ PO (11:03)
[2025-06-08] MEDS: D5LR 1000 IV (11:03)
--- NOTE | 2025-06-08 11:10 | PTCARENOTE ---
KCL 40 meq po given as ordered
--- NOTE | 2025-06-08 12:25 | W.PN.NEPH.PH ---
Today's Communication / Plan
-
cont IVF
Assessment/Plan
-
30F Obesity ADHD Depression here for Nausea vomiting left flank pain likely 2/2 to obstructing kidney stone. Evaluated for the same yesterday in ED, sent home with conservative mgmt. Patient's symptoms however progressivly worsened prompting
return. ED eval significant for severe sepsis (tachycardia WBC elevation Tachypnea), systolic in 60s, received fluid boluses in the ER taken emergently to the OR for stone extraction and stent placement.
Renal consult for acute kidney injury metabolic acidosis.
Creatinine at 1.4 yesterday in the emergency room today presents with a creatinine of 2.9 bicarb of 13 with a lactic acid of 5
Impression.
Acute kidney injury secondary to septic shock and renal calculi status post stent/E. coli preliminary urine
Status post left ureteroscopy, stone removal and stenting with purulent urine upon relief of obstruction 06/06/2025-Dr. Oakley
Acute metabolic acidosis
Hypocalcemia
Thrombocytopenia
Plan.
cr improving to 1.3, prerenal
cont IVF and encourage po intake
BP stable off pressors
abx per primary
follow labs
-
-
Date of Service: June 08, 2025
CC / HPI / ROS
-
Chief Complaint:
JUAN
History of Present Illness:
Creatinine down to 1.3
Hemodynamically stable off pressor support
Metabolic acidosis persist on lactated Ringer's
plt low at 81
WBC high 25.7
Review of Systems:
Nonoliguric
No chest pain or shortness of breath
afebrile
Labs
-
Labs:
WBC 25.7 10^3/uL (4.8-10.8) H 06/08/25 03:58
RBC 3.11 10^6/uL (4.20-5.40) L 06/08/25 03:58
Hgb 9.2 g/dL (12.0-16.0) L 06/08/25 03:58
Hct 26.3 % (37.0-47.0) L 06/08/25 03:58
Plt Count 81 10^3/uL (130-400) L 06/08/25 03:58
Sodium 140 mmol/L (135-145) 06/08/25 03:58
Potassium 3.6 mmol/L (3.5-5.1) 06/08/25 03:58
Chloride 113 mmol/L (98-107) H 06/08/25 03:58
Carbon Dioxide 22 mmol/L (22-30) 06/08/25 03:58
BUN 29 mg/dl (7-17) H 06/08/25 03:58
Creatinine 1.3 mg/dL (0.6-1.0) H 06/08/25 03:58
eGFR 57.09 06/08/25 03:58
Glucose 68 mg/dl (70-99) L 06/08/25 03:58
Calcium 7.7 mg/dl (8.4-10.2) L 06/08/25 03:58
Phosphorus 2.8 mg/dl (2.5-4.5) 06/08/25 03:58
Albumin 2.4 g/dl (3.5-5.0) L 06/08/25 03:58
Physical Exam
-
Vital Signs:
Vital Signs
Temp Pulse Resp BP Pulse Ox
97.8 F 90 23 95/67 97
06/08/25 11:43 06/08/25 10:00 06/08/25 10:00 06/08/25 10:00 06/08/25 10:00
Cardiovascular:: Regular rate and rhythm
Respiratory:: Bilateral: CTA
Lung Excursion:: Normal
Abdomen:: Nontender
Bowel Sounds:: Normal
Extremity Edema:: None: Bilateral:
Pearson Catheter: No
--- NOTE | 2025-06-08 13:15 | PTCARENOTE ---
Pt ambulated to the bathroom then CHG cloth bath given. Pt then assisted back to bed to rest for a while. No c/o pain. No changes in assessment. Oscal 500 mg given as ordered. Call sheppard in reach
[2025-06-08] MEDS: OSCAL CAL 500 500 MG PO (13:18)
--- NOTE | 2025-06-08 14:05 | W.PN.HOSP.TC ---
Today's Communication/Plan
-
Stable for downgrade to tele
wean O2 supplementation as tolerated
encourage ambulation
cont abx
Assessment / Plan
Assessment / Plan
Physical Exam
General: No pallor, cyanosis, or jaundice. Obese no acute distress, appears comfortable at this time.
HEENT: Throat clear. PERRLA Normocephalic atraumatic
NECK: Supple. No JVD Carotid Bruits
RESPIRATORY: Lungs clear to auscultation. No crackles wheezes stridor
CVS: S1, S2 normal. RRR. No murmur, rub or gallop.
ABDOMEN: Soft, non-tender. No distension. Decreased bowel sounds. Left sided flank pain/costovertebral angle tenderness significantly improved/resolved
EXTREMITIES: No peripheral cyanosis or edema.
LEAD DENTAL ASSISTANT: AOx3. conversant coherent
Psych: Calm
IMPRESSION:
30F hx ADHD Depression Obesity here for Severe Sepsis 2/2 left obstructing kidney stone with associate JUAN and Liver Injury. Planned for urgent OR stenting and admission to ICU for closer monitoring and pressor support as needed.
PLAN:
#Severe Sepsis 2/2 left obstructing kidney stone with associate JUAN and Liver Injury
ICU admit downgraded to Tele
Professor Of Pathology eval appreciated
Urology eval appreciated planned for OR stenting
weaned off Levophed
Nephro eval appreciated
cont IVF support
monitor renal function and LFTs (improving)
Urine Blood cx's pos for E. coli pansensitive
empiric Vanc Cefipime narrowed to ceftriaxone, continue for now, eventual transition to PO
#Elevated D-Dimer likely 2/2 septic Shock
#Acute Hypoxia
#Possible Obesity Hypoventilation syndrome and/or obstructive sleep apnea contributing
wean O2 supplementation as tolerated
ECHO appreciated moderate reduced Ejection Fraction 40%
Venous Duplex neg for DVT
VQ scan low probability PE
empiric hep gtt since discontinued
Appears Euvolemic on exam
outpt sleep study, cardiology follow up, and repeat ECHO recommended
#Metabolic Acidosis likely 2/2 Lactic acidosis
IVF support
trend lactic acid
Resolved
#Vit D deficiency
#Hypocalcemia
monitor and replete as necessary
Vit D supplementation
#Hx ADHD, Depression
cont home atomoxetine bupropion duloxetine Lamictal
DVT ppx SCDs Heparin
Full Code
Stable for downgrade to Tele
Discussed with patient and patient's mother Sondra
I spent a total of 45 minutes with the patient or on the floor. More than 50% of this time involved counseling and coordination of care.
Anticipated Discharge: 24 - 48 hours
Subjective/Interval History
-
Date of Service: June 08, 2025
no acute distress sitting up comfortably in chair. Overall reports feeling well. Denies new acute issues at this time. Remains on low dose oxygen supplementation.
Objective Data
-
Labs:
Laboratory Results
06/08/25
03:58
WBC 25.7 H
Hgb 9.2 L
Hct 26.3 L
Plt Count 81 L
Sodium 140
Potassium 3.6
Chloride 113 H
Carbon Dioxide 22
BUN 29 H
Creatinine 1.3 H
Glucose 68 L
Calcium 7.7 L
Total Bilirubin 0.7
AST 85 H
ALT 134 H
Alkaline Phosphatase 137 H
Vital Signs:
Vital Signs
Temp Pulse Resp BP Pulse Ox
97.8 F 97 23 101/79 96
06/08/25 11:43 06/08/25 13:16 06/08/25 13:16 06/08/25 13:16 06/08/25 11:00
I&O
06/07/25 06/08/25 06/09/25
06:59 06:59 06:59
Intake Total 5187.8 / 5353.6 3799.7 / 3949.7 1430 / 1430
Output Total 3025 / 3025 2500 / 2500
Balance 2162.8 / 2328.6 1299.7 / 1449.7 1430 / 1430
[2025-06-08 15:00] LABS: Glucose - Point of Care 79 mg/dl (70-99)
--- NOTE | 2025-06-08 15:00 | PTCARENOTE ---
Pt voided. Glucose checked 79. Currently oob in the chair. Report called to 2 south-Will transfer pt via wheelchair. No other changes. VS as documented.
[2025-06-08] MEDS: FLUSH (NSS) 2 FLUSH IV (15:21)
--- NOTE | 2025-06-08 16:25 | CM ---
Transferred to Room 2102. IV/Rocephin, diet advanced, following renal function. Discharge POC: Anticipate home with no needs.
[2025-06-08] MEDS: ROCEPHIN 2000 MG IV (17:13)
[2025-06-08] MEDS: STERILE WATER FOR INJECTION 20 ML IV (17:13)
--- NOTE | 2025-06-08 17:38 | PTCARENOTE ---
1600 Pt arrived from ICU to 2S. Pt AAOX3. IVF infusing. VSS. Oriented to room and call sheppard. Call sheppard within reach.
[2025-06-08] MEDS: FLUSH (NSS) 1 FLUSH IV (17:46)
[2025-06-08] MEDS: LAMICTAL 50 MG PO (19:31)
[2025-06-08] MEDS: FLUSH (NSS) IV ×2 (21:31)
[2025-06-09] MEDS: HEPARIN 5000 UNITS SC ×3 (00:24→15:50)
[2025-06-09] MEDS: D5LR 1000 IV (00:26)
[2025-06-09 03:06] VITALS: BP 100/60
[2025-06-09 06:04] VITALS: BMI 34.8
[2025-06-09 06:48] LABS: Hematocrit 25.4 % (37.0-47.0); Hemoglobin 8.7 g/dL (12.0-16.0); Mean Corp Hgb Conc. 34.3 g/dL (33.0-37.0); Mean Corpuscular Volume 84.1 fL (81.0-99.0); Platelet Count 89 10^3/uL (130-400); Red Cell Dist. Width 14.4 % (11.5-14.5)
[2025-06-09 07:05] VITALS: BP 115/65
[2025-06-09 07:16] LABS: ALT (SGPT) 93 U/L (0-35); AST (SGOT) 37 U/L (14-36); Albumin 2.4 g/dl (3.5-5.0); Alkaline Phosphatase 147 U/L (38-126); Blood Urea Nitrogen 18 mg/dl (7-17); Calcium 8.0 mg/dl (8.4-10.2); Carbon Dioxide 22 mmol/L (22-30); Chloride 114 mmol/L (98-107); Estimated Creatinine Clearance 85 ml/min; Glucose 75 mg/dl (70-99); Magnesium 1.9 mg/dl (1.6-2.3); Potassium 3.3 mmol/L (3.5-5.1); Sodium 139 mmol/L (135-145); Total Protein 4.6 g/dl (6.3-8.2); eGFR > 60.00
--- NOTE | 2025-06-09 08:35 | W.PN.HOSP.TC ---
Today's Communication/Plan
-
see a/p
Assessment / Plan
Assessment / Plan
Physical Exam
General: No pallor, cyanosis, or jaundice. Obese no acute distress, appears comfortable at this time.
HEENT: Throat clear. PERRLA Normocephalic atraumatic
NECK: Supple. No JVD Carotid Bruits
RESPIRATORY: Lungs clear to auscultation. No crackles wheezes stridor
CVS: S1, S2 normal. RRR. No murmur, rub or gallop.
ABDOMEN: Soft, non-tender. No distension. Decreased bowel sounds. Left sided flank pain/costovertebral angle tenderness significantly improved/resolved
EXTREMITIES: No peripheral cyanosis or edema.
ORDER CLERK: AOx3. conversant coherent
Psych: Calm
IMPRESSION:
30F hx ADHD Depression Obesity here for Severe Sepsis 2/2 left obstructing kidney stone with associate JUAN and Liver Injury. Planned for urgent OR stenting and admission to ICU for closer monitoring and pressor support as needed.
PLAN:
#Severe Sepsis 2/2 left obstructing kidney stone with associate JUAN and Liver Injury (no shock liver)
#Complicated UTI
ICU admit downgraded to Tele
Electrician Rectifier Maintenance eval appreciated
Urology eval appreciated Lt ureteroscopy w/ stone removal and stent placement 06/06/25
weaned off Levophed
Nephro eval appreciated
IVF support completed
monitor renal function and LFTs (improving)
Urine Blood cx's pos for E. coli pansensitive, follow repeat blood culture
empiric Vanc Cefipime narrowed to ceftriaxone, further de-escalated to Augmentin
Liver and Kidney function improving
JUAN resolved
#Elevated D-Dimer likely 2/2 septic Shock
#Acute Hypoxia
#Possible Obesity Hypoventilation syndrome and/or obstructive sleep apnea contributing
wean O2 supplementation as tolerated
ECHO appreciated moderate reduced Ejection Fraction 40%
Venous Duplex neg for DVT
VQ scan low probability PE
empiric hep gtt since discontinued
Appears Euvolemic on exam
outpt sleep study, cardiology follow up, and repeat ECHO recommended
#Metabolic Acidosis likely 2/2 Lactic acidosis
IVF support completed
trend lactic acid
Resolved
#Vit D deficiency
#Hypocalcemia
monitor and replete as necessary
Vit D supplementation
#Hypokalemia
#Hypophosphatemia
monitor and replete as necessary
#Hx ADHD, Depression
cont home atomoxetine bupropion duloxetine Lamictal
DVT ppx SCDs Heparin
Full Code
Discussed with patient and patient's mother Sondra
I spent a total of 45 minutes with the patient or on the floor. More than 50% of this time involved counseling and coordination of care.
Anticipated Discharge: 24 - 48 hours
Subjective/Interval History
-
Date of Service: June 09, 2025
No acute distress, overall reports feeling well. Sitting up comfortably in chair. Ambulatory without need for assist device.
Objective Data
-
Labs:
Laboratory Results
06/09/25
06:15
WBC 24.4 H
Hgb 8.7 L
Hct 25.4 L
Plt Count 89 L
Sodium 139
Potassium 3.3 L
Chloride 114 H
Carbon Dioxide 22
BUN 18 H
Creatinine 1.0
Glucose 75
Calcium 8.0 L
Total Bilirubin 0.5
AST 37 H
ALT 93 H
Alkaline Phosphatase 147 H
Vital Signs:
Vital Signs
Temp Pulse Resp BP Pulse Ox
98.3 F 108 18 115/65 95
06/09/25 07:05 06/09/25 07:05 06/09/25 07:05 06/09/25 07:05 06/09/25 07:05
I&O
06/08/25 06/09/25 06/10/25
06:59 06:59 06:59
Intake Total 3799.7 / 3949.7 2069
Output Total 2500 / 2500 300 / 300
Balance 1299.7 / 1449.7 1769
[2025-06-09] MEDS: WELLBUTRIN XL (24 hour extended release) 300 MG PO (09:13)
[2025-06-09] MEDS: TOPAMAX 100 MG PO (09:13)
[2025-06-09] MEDS: PROTONIX 40 MG PO (09:13)
[2025-06-09] MEDS: CYMBALTA DELAYED RELEASE 40 MG PO (09:13)
[2025-06-09] MEDS: FLOMAX 0.4 MG PO (09:13)
[2025-06-09] MEDS: NON-FORMULARY ITEM 1 MG PO (09:14)
[2025-06-09] MEDS: VITAMIN D3 (cholecalciferol) 25 MCG PO (09:14)
[2025-06-09] MEDS: POTASSIUM PHOSPHATE 259.0909 MEQ IV (10:27)
[2025-06-09] MEDS: FLORASTOR 250 MG PO ×2 (10:27→22:29)
[2025-06-09] MEDS: AUGMENTIN 875 MG/125 MG 1 TABLET PO ×2 (10:27→20:34)
--- NOTE | 2025-06-09 10:44 | W.PN.URO.CBU ---
Today's Communication / Plan
-
fit for discharge urologically -- will sign off
Assessment / Plan
-
obstructing left ureteral stone with E. coli urosepsis, s/p emergency endoscopic removal of stone and placement of ureteral stent
fit for discharge urologically -- will sign off
Diagnosis
-
Date of Service: June 09, 2025
-
Patient Diagnosis:
obstructing left ureteral stone with E. coli urosepsis, s/p emergency endoscopic removal of stone and placement of ureteral stent
Post Op Day: 3
Subjective
-
feeling better
Objective
-
Vital Signs
Temp Pulse Resp BP Pulse Ox
98.3 F 108 18 115/65 95
06/09/25 07:05 06/09/25 07:05 06/09/25 07:05 06/09/25 07:05 06/09/25 07:05
Intake and Output
06/08/25 06/09/25 06/10/25
06:59 06:59 06:59
Intake Total 3799.7 / 3949.7 2069
Output Total 2500 / 2500 300 / 300
Balance 1299.7 / 1449.7 1770 / 1770
Intake:
Oral fluids 1150 / 1150
IV fluids (Total) 3799.7 / 3949.7 920 / 920
D5lr 1,000 ml @ 80 mls/hr IV . 320 / 320
[id number] JUAN Rx#:[id number]
Heparin 72 / 72
Levophed 127.7 / 127.7
Lr 1,000 ml @ 150 mls/hr IV . 3600 / 3750 600 / 600
[id number] JUAN Rx#:[id number]
Output:
Liquid stool amount 100 / 100
Rectum 100 / 100
Urine, Voided 2400 / 2400 300 / 300
Other:
Number of approximated MODERATE 1
amounts of urine
Number of approximated LARGE 1 1
amounts of urine
Laboratory Results
06/09/25 06:15
06/09/25 06:15
Physical Exam
-
General - well developed, well nourished, no acute distress
Care Review
Data Reviewed
Discussed with: Nursing
[2025-06-09 11:15] VITALS: BP 125/83
--- NOTE | 2025-06-09 13:45 | W.PN.NEPH.PH ---
Today's Communication / Plan
-
replace k and phos
Assessment/Plan
-
30F Obesity ADHD Depression here for Nausea vomiting left flank pain likely 2/2 to obstructing kidney stone. Evaluated for the same yesterday in ED, sent home with conservative mgmt. Patient's symptoms however progressivly worsened prompting
return. ED eval significant for severe sepsis (tachycardia WBC elevation Tachypnea), systolic in 60s, received fluid boluses in the ER taken emergently to the OR for stone extraction and stent placement.
Renal consult for acute kidney injury metabolic acidosis.
Creatinine at 1.4 yesterday in the emergency room today presents with a creatinine of 2.9 bicarb of 13 with a lactic acid of 5
Impression.
Acute kidney injury secondary to septic shock and renal calculi status post stent/E. coli preliminary urine
Status post left ureteroscopy, stone removal and stenting with purulent urine upon relief of obstruction 06/06/2025-Dr. Oakley
Acute metabolic acidosis
Hypocalcemia
Thrombocytopenia
Plan.
cr improving to 1. prerenal
encourage po intake
BP stable
abx per primary
follow labs off IVF
reaplce k
will s/o, call with ?s
-
-
Date of Service: June 09, 2025
CC / HPI / ROS
-
Chief Complaint:
JUAN
History of Present Illness:
Creatinine down to 1. k low 3.3, phos low 1.9
Hemodynamically stable off IVF
Metabolic acidosis improved
plt low at 89
WBC high 24.4
Review of Systems:
Nonoliguric
No chest pain or shortness of breath
afebrile
Labs
-
Labs:
WBC 24.4 10^3/uL (4.8-10.8) H 06/09/25 06:15
RBC 3.02 10^6/uL (4.20-5.40) L 06/09/25 06:15
Hgb 8.7 g/dL (12.0-16.0) L 06/09/25 06:15
Hct 25.4 % (37.0-47.0) L 06/09/25 06:15
Plt Count 89 10^3/uL (130-400) L 06/09/25 06:15
Sodium 139 mmol/L (135-145) 06/09/25 06:15
Potassium 3.3 mmol/L (3.5-5.1) L 06/09/25 06:15
Chloride 114 mmol/L (98-107) H 06/09/25 06:15
Carbon Dioxide 22 mmol/L (22-30) 06/09/25 06:15
BUN 18 mg/dl (7-17) H 06/09/25 06:15
Creatinine 1.0 mg/dL (0.6-1.0) 06/09/25 06:15
eGFR > 60.00 06/09/25 06:15
Glucose 75 mg/dl (70-99) 06/09/25 06:15
Calcium 8.0 mg/dl (8.4-10.2) L 06/09/25 06:15
Phosphorus 1.9 mg/dl (2.5-4.5) L 06/09/25 06:15
Albumin 2.4 g/dl (3.5-5.0) L 06/09/25 06:15
Physical Exam
-
Vital Signs:
Vital Signs
Temp Pulse Resp BP Pulse Ox
98.0 F 102 16 125/83 98
06/09/25 11:15 06/09/25 11:15 06/09/25 11:15 06/09/25 11:15 06/09/25 11:15
Cardiovascular:: Regular rate and rhythm
Respiratory:: Bilateral: CTA
Lung Excursion:: Normal
Abdomen:: Nontender
Bowel Sounds:: Normal
Extremity Edema:: None: Bilateral:
Pearson Catheter: No
[2025-06-09 15:15] VITALS: BP 122/77
[2025-06-09 19:00] VITALS: BP 130/86
--- NOTE | 2025-06-09 19:51 | PTCARENOTE ---
Pt HR cont to elevate into the 120s with ambulation, pt denies any chest pain SOB or palpitations. At rest HR 98 @ this time continues on telemetry
[2025-06-09] MEDS: LAMICTAL 50 MG PO (20:34)
[2025-06-09 23:00] VITALS: BP 118/82
[2025-06-10] MEDS: HEPARIN 5000 UNITS SC ×4 (00:34→23:00)
[2025-06-10 03:00] VITALS: BP 121/82
[2025-06-10 06:39] LABS: Hematocrit 27.4 % (37.0-47.0); Hemoglobin 9.3 g/dL (12.0-16.0); Mean Corp Hgb Conc. 33.9 g/dL (33.0-37.0); Mean Corpuscular Volume 84.8 fL (81.0-99.0); Platelet Count 102 10^3/uL (130-400); Red Cell Dist. Width 14.2 % (11.5-14.5)
--- NOTE | 2025-06-10 06:48 | W.PN.HOSP.TC ---
Today's Communication/Plan
-
Cont abx
follow cultures
ice packs prn hand swelling.
Assessment / Plan
Assessment / Plan
Physical Exam
General: No pallor, cyanosis, or jaundice. Obese no acute distress, appears comfortable at this time.
HEENT: Throat clear. PERRLA Normocephalic atraumatic
NECK: Supple. No JVD Carotid Bruits
RESPIRATORY: Lungs clear to auscultation. No crackles wheezes stridor
CVS: S1, S2 normal. RRR. No murmur, rub or gallop.
ABDOMEN: Soft, non-tender. No distension. Decreased bowel sounds. No flank tenderness
EXTREMITIES: No peripheral cyanosis or edema. Mild hands swelling
LAP RUNNER: AOx3. conversant coherent
Psych: Calm
IMPRESSION:
30F hx ADHD Depression Obesity here for Severe Sepsis 2/2 left obstructing kidney stone with associate JUAN and Liver Injury. Planned for urgent OR stenting and admission to ICU for closer monitoring and pressor support as needed.
PLAN:
#Severe Sepsis 2/2 left obstructing kidney stone with associate JUAN and Liver Injury (no shock liver)
#Complicated UTI
ICU admit downgraded to Tele
Brake Tester eval appreciated
Urology eval appreciated Lt ureteroscopy w/ stone removal and stent placement 06/06/25
weaned off Levophed
Nephro eval appreciated
IVF support completed
monitor renal function and LFTs (improving)
Urine Blood cx's pos for E. coli pansensitive, follow repeat blood culture
empiric Vanc Cefipime narrowed to ceftriaxone, further de-escalated to Augmentin
Liver and Kidney function improving
JUAN resolved
Persistent leukocytosis, cont to monitor on abx, consider ID eval if doesn't improve
#Elevated D-Dimer likely 2/2 septic Shock
#Acute Hypoxia
#Possible Obesity Hypoventilation syndrome and/or obstructive sleep apnea contributing
wean O2 supplementation as tolerated
ECHO appreciated moderate reduced Ejection Fraction 40%
Venous Duplex neg for DVT
VQ scan low probability PE
empiric hep gtt since discontinued
Appears Euvolemic on exam
outpt sleep study, outpt repeat ECHO recommended
Considering Cardio eval inpt vs outpt
#B/L Hands swelling
likely from prior IVF
superficial thrombophlebitis from blood draws also contributing
Ice packs prn
#Metabolic Acidosis likely 2/2 Lactic acidosis
IVF support completed
trend lactic acid
Resolved
#Vit D deficiency
#Hypocalcemia
monitor and replete as necessary
Vit D supplementation
#Hypokalemia
#Hypophosphatemia
monitor and replete as necessary
#Hx ADHD, Depression
cont home atomoxetine bupropion duloxetine Lamictal
DVT ppx SCDs Heparin
Full Code
Discussed with patient and patient's mother Sondra
I spent a total of 45 minutes with the patient or on the floor. More than 50% of this time involved counseling and coordination of care.
Anticipated Discharge: 24 - 48 hours
Subjective/Interval History
-
Date of Service: June 10, 2025
No acute distress, overall reports feeling well. Notes hand swelling b/l, suspect combination d/t recent IV Fluids and superficial thrombophlebitis from lab draws.
Objective Data
-
Labs:
Laboratory Results
06/10/25
06:28
WBC 24.8 H
Hgb 9.3 L
Hct 27.4 L
Plt Count 102 L
Sodium Pending
Potassium Pending
Chloride Pending
Carbon Dioxide Pending
BUN Pending
Creatinine Pending
Glucose Pending
Calcium Pending
Total Bilirubin Pending
AST Pending
ALT Pending
Alkaline Phosphatase Pending
Vital Signs:
Vital Signs
Temp Pulse Resp BP Pulse Ox
97.9 F 97 16 121/82 94
06/10/25 03:00 06/10/25 03:00 06/10/25 03:00 06/10/25 03:00 06/10/25 03:00
I&O
06/08/25 06/09/25 06/10/25
06:59 06:59 06:59
Intake Total 3799.7 / 3949.7 2069 1580 / 1580
Output Total 2500 / 2500 300 / 300
Balance 1299.7 / 1449.7 1769 1580 / 1580
[2025-06-10 07:15] VITALS: BP 120/68
[2025-06-10 07:15] LABS: ALT (SGPT) 94 U/L (0-35); AST (SGOT) 44 U/L (14-36); Albumin 2.7 g/dl (3.5-5.0); Alkaline Phosphatase 143 U/L (38-126); Blood Urea Nitrogen 14 mg/dl (7-17); Calcium 8.3 mg/dl (8.4-10.2); Carbon Dioxide 19 mmol/L (22-30); Chloride 114 mmol/L (98-107); Estimated Creatinine Clearance 106 ml/min; Glucose 70 mg/dl (70-99); Magnesium 1.7 mg/dl (1.6-2.3); Potassium 3.6 mmol/L (3.5-5.1); Sodium 138 mmol/L (135-145); Total Protein 5.3 g/dl (6.3-8.2); eGFR > 60.00
[2025-06-10] MEDS: AUGMENTIN 875 MG/125 MG 1 TABLET PO ×2 (08:32→20:11)
[2025-06-10] MEDS: WELLBUTRIN XL (24 hour extended release) 300 MG PO (08:32)
[2025-06-10] MEDS: PROTONIX 40 MG PO (08:32)
[2025-06-10] MEDS: VITAMIN D3 (cholecalciferol) 25 MCG PO (08:32)
[2025-06-10] MEDS: TOPAMAX 100 MG PO (08:34)
[2025-06-10] MEDS: FLOMAX 0.4 MG PO (08:34)
[2025-06-10] MEDS: NON-FORMULARY ITEM 60 MG PO (08:34)
[2025-06-10] MEDS: CYMBALTA DELAYED RELEASE 40 MG PO (08:48)
[2025-06-10] MEDS: FLORASTOR 250 MG PO ×2 (08:51→23:00)
[2025-06-10 11:15] VITALS: BP 124/78
--- NOTE | 2025-06-10 11:22 | W.PN.URO.CBU ---
Today's Communication / Plan
-
for stent removal 06/15
Assessment / Plan
-
obstructing left ureteral stone with E. coli urosepsis, s/p emergency endoscopic removal of stone and placement of ureteral stent
fit for discharge urologically -- will sign off
Diagnosis
-
Date of Service: June 10, 2025
-
Patient Diagnosis:
obstructing left ureteral stone with E. coli urosepsis, s/p emergency endoscopic removal of stone and placement of ureteral stent
Post Op Day: 4
Objective
-
Vital Signs
Temp Pulse Resp BP Pulse Ox
98 F 98 18 120/68 96
06/10/25 07:15 06/10/25 07:15 06/10/25 07:15 06/10/25 07:15 06/10/25 07:15
Intake and Output
06/09/25 06/10/25 06/11/25
06:59 06:59 06:59
Intake Total 2070 / 2070 1580 / 1580
Output Total 300 / 300
Balance 1770 / 1770 1580 / 1580
Intake:
Oral fluids 1150 / 1150 1080 / 1080
IV fluids (Total) 920 / 920 240 / 240
D5lr 1,000 ml @ 80 mls/hr IV . 320 / 320
[id number] JUAN Rx#:[id number]
Lr 1,000 ml @ 150 mls/hr IV . 600 / 600
Q6H40M JUAN Rx#:[id number]
IV piggybacks 260 / 260
Output:
Urine, Voided 300 / 300
Other:
Number of approximated MODERATE 1 3
amounts of urine
Number of approximated LARGE 1
amounts of urine
Laboratory Results
06/10/25 06:28
06/10/25 06:28
Physical Exam
-
General - well developed, well nourished, no acute distress
Chest - clear bilaterally
Abdomen - soft, non-tender, positive bowel sounds, no CVAT, no incisional pain or distention
Genitalia - normal
Rectal - normal
Skin - warm & dry with no rash
Neuro - AOx3, no motor deficits
Extremities - no clubbing, no cyanosis, no edema
Incision - clean, dry
Dressing - clean, dry, intact
[2025-06-10] MEDS: TYLENOL 650 MG PO ×2 (14:46→23:04)
[2025-06-10 15:10] VITALS: BP 127/63
[2025-06-10] MEDS: LAMICTAL 50 MG PO (20:11)
[2025-06-10 23:02] VITALS: BP 100/62
[2025-06-11 06:12] VITALS: BMI 32.5
[2025-06-11 06:32] LABS: Hematocrit 28.4 % (37.0-47.0); Hemoglobin 9.7 g/dL (12.0-16.0); Mean Corp Hgb Conc. 34.2 g/dL (33.0-37.0); Mean Corpuscular Volume 84.5 fL (81.0-99.0); Platelet Count 117 10^3/uL (130-400); Red Cell Dist. Width 13.6 % (11.5-14.5)
[2025-06-11 06:59] LABS: ALT (SGPT) 69 U/L (0-35); AST (SGOT) 30 U/L (14-36); Albumin 2.8 g/dl (3.5-5.0); Alkaline Phosphatase 139 U/L (38-126); Blood Urea Nitrogen 12 mg/dl (7-17); Calcium 8.2 mg/dl (8.4-10.2); Carbon Dioxide 20 mmol/L (22-30); Chloride 112 mmol/L (98-107); Estimated Creatinine Clearance 102 ml/min; Glucose 70 mg/dl (70-99); Magnesium 1.8 mg/dl (1.6-2.3); Potassium 3.6 mmol/L (3.5-5.1); Sodium 137 mmol/L (135-145); Total Protein 5.4 g/dl (6.3-8.2); eGFR > 60.00
[2025-06-11 07:00] VITALS: BP 125/88
[2025-06-11] MEDS: NON-FORMULARY ITEM 60 MG PO (08:32)
[2025-06-11] MEDS: FLOMAX 0.4 MG PO (08:33)
[2025-06-11] MEDS: HEPARIN 5000 UNITS SC (08:33)
[2025-06-11] MEDS: AUGMENTIN 875 MG/125 MG 1 TABLET PO ×2 (08:33→20:08)
[2025-06-11] MEDS: CYMBALTA DELAYED RELEASE 40 MG PO (08:33)
--- NOTE | 2025-06-11 08:33 | CON.ID ---
Addendum entered and electronically signed by Daisy Quevedo MD 06/11/25 16:09:
Await radiology review of CT; my review no evidence of renal abscess
AW
Original Note:
Consultation
-
Date/Time Consultation Requested: 06/11/25 8:30
Date/Time Consultation Performed: 06/11/25 8:33
Requesting Provider: Dr Clark
Performing Provider: Dr Quevedo
Reason for Consultation: septic shock, bacteremia, possible SHAVONNE
Chief Complaint / Past History
Chief Complaint
Nausea/Vomiting/Left Flank Pain
History of Present Illness
Ms Salazar is a 30 year old female with history notable for rash with bactrim who first presented here on 06/05, 6 days ago, for acute onset of L flank pain nausea and vomiting and we around to have a 2 mm distal obstructing UVJ renal stone with
hydronephrosis. No fevers, chills or urinary frequency at that time. She was managed conservatively with toradol, tamsulosin and oxycodone. UA showed and urine culture ultimately grew 100K E coli. no antibiotics were initially prescribed, she
returned home however she had progression of pain and returned the next day for pain and sweats. Denied mary fevers or chills. She required IVF and levophed with peak dose at 38.8 ml/min which weaned off by 06/08 and was started empirically on
vancomycin and cefepime and urology took her for stenting 06/06 which confirmed distal impacted stone which was yellow and brown and admist hyperplastic tissue, it was removed completely and purulent urine was relieved from the ureter. 06/06 blood
culture 1 of 2 sets grew E coli. 06/06 CT a/p done without contrast showed: '0.2 cm calculus again seen at the left ureterovesical junction with mild left hydroureteronephrosis again seen. Mild left perinephric stranding. Mild hepatomegaly.' She had
a PICC placed. BL LE US without DVT. VQ scan showed low probability of PE. A single blood culture was done 06/09 and is now growth at 24 hours. She was initially on cefepime and vancomycin, then deescalated to ceftriaxone 2 gm Q24 hours, then 06/09
deescalated to augmentin 875/125 BID. Her WBC count peaked on 06/08 - two days after retrieval of the stone and has been down trending now at 21.8, hgb 9.7. plt improved from 95 to 117. AST/ALT peaked at 171/183 and have down trended[place] [address] [place]. 06/07 TTE: EF 40% She has been afebrile throughout this time.
Today patient reports relapse of L sided flank pain though describes the character as different than when she presented to the hospital. She also complains of some new neck stiffness without photophobia. Neck is supple. She had some orthostasis
with lifting her arm above her head which resolved with putting her arms down. She has trace edema of the hands and legs.
Past History
Additional Past Medical History:
Obesity.
Depression.
ADHD.
Former smoker-less than [id number]
Additional Past Surgical History:
as per hpi, Cholecystectomy and Gynocological ()
Allergy History:
sulfamethoxazole (From Bactrim) Allergy (Verified 06/06/25 06:51)
Rash
trimethoprim (From Bactrim) Allergy (Verified 06/06/25 06:51)
Rash
Medications Reviewed: Yes
Social History
Tobacco: Former Smoker
Alcohol: None
Family History
Family History: Not Pertinent
Review of Systems
Vital Signs
Temp Pulse Resp BP Pulse Ox
98.0 F 87 15 125/88 98
06/11/25 07:00 06/11/25 07:00 06/11/25 07:00 06/11/25 07:00 06/11/25 07:00
Physical Exam
Physical Exam
Constitutional: No Acute Distress
Head: Other (supple neck)
Cardiovascular: Regular Rate and S1/S2; Negative Murmur or Rub
Pulmonary: Clear and Symmetric; Negative Wheezes, Rales or Rhonchi
Gastrointestinal: Soft, Non Tender, Non Distended and Normal Bowel Sounds
Extremities: Other (trace edema of the hands and lower extremities)
Skin: Warm and Dry; Negative Rash or Jaundice
Lab / Diagnostic Study Results
06/11/25 06:12
06/11/25 06:12
Total Counted 100 06/06/25 06:55
Abs Neuts (Manual) 13.5 10^3/uL (1.4-6.5) H 06/06/25 06:55
Segmented Neutrophils 49 % (42-75) 06/06/25 06:55
Band Neutrophils 35 % (0-3) H 06/06/25 06:55
Lymphocytes (Manual) 1 % (20-51) L 06/06/25 06:55
Eosinophils (Manual) 2 % (0-6) 06/06/25 06:55
Basophils (Manual) 1 % 06/06/25 06:55
PT Cancelled 06/06/25 18:24
INR Cancelled 06/06/25 18:24
Lactic Acid 2.2 mmol/L (0.7-2.0) H 06/07/25 03:12
Microbiology Results
Micro:
06/06/25 06:55 Blood Culture - Final
Blood/Venous No Growth - Final Report
06/09/25 10:25 Blood Culture - Preliminary
Blood/Venous No Growth in 24 hours- Final report to follow
06/08/25 14:03 MRSA Screen - Final
Nose No Methicillin Resistant Staphylococcus aureus isolated.
06/06/25 06:55 Blood Culture - Preliminary
Blood/Venous Escherichia coli
Gram Stain - Preliminary
Blood Culture Preliminary 06/09/25-09
Positive for Escherichia coli.
Performed by [email or web address] PCR methodology.
Organism 1 Escherichia coli
1. Escherichia coli
M.I.[facility]. RX
--------- ---
Amoxicillin/Potas. Clavulanate <=8/4 S
Ampicillin <=8 S
Ampicillin/Sulbactam <=4/2 S
Aztreonam <=4 S
Cefazolin <=2 S
Ertapenem <=0.5 S
Ciprofloxacin <=0.25 S
Gentamicin <=2 S
Meropenem <=1 S
Piperacillin/Tazobactam <=8 S
Tetracycline <=4 S
Tobramycin <=2 S
Trimethoprim/Sulfamethoxazole <=2/38 S
Assessment / Plan
Pyelonephritis due to E coli
Obstructing UVJ stone s/p removal 06/06
E coli bacteremia - not sustained
Septic Shock - resolved 06/08
Leukocytosis - improving
Depressed EF 40%, elevated BNP
- repeat blood culture is no growth
- low suspicion for endocarditis with gram negative bacteremia in otherwise healthy, young woman with known source of bacteremia; no need for SHAVONNE in my opinion
- CT a/p with IV contrast to rule out renal abscess; if abscess is IDd then I will discuss options further with her. If there is not renal abscess then switch to cefdinir 300 mg PO BID for 14 day course
- note plans for stent removal on 06/15; stone was removed completely 06/06. Urology has signed off for now.
- stop augmentin - start cefdinir, day 6 of 14 of planned therapy
- follow up with urology
Care Review
Plan reviewed with: Physician (Dr Diane - notified of CT plan)
--- NOTE | 2025-06-11 08:34 | W.PN.UPDATE ---
Update Note
Progress Note Update
Persistent White Count Elevation Persistently Tachy, recent ECHO w/ reduced EF 40% (taken while pt was in shock) hx pos Blood Cx
Question possible Infectious endocarditis and as whether patient should be started on heart failure medications.
Otherwise appears well comfortable/euvolemic at this time
Restarted court monitor, Requested ID and Cardio eval.
Discussed with patient, patient's mother Sondra, and oncoming covering provider/hospitalist
[2025-06-11] MEDS: WELLBUTRIN XL (24 hour extended release) 300 MG PO (08:35)
[2025-06-11] MEDS: TOPAMAX 100 MG PO (08:35)
[2025-06-11] MEDS: VITAMIN D3 (cholecalciferol) 25 MCG PO (08:35)
[2025-06-11] MEDS: PROTONIX 40 MG PO (08:35)
[2025-06-11] MEDS: FLORASTOR 250 MG PO ×2 (10:36→21:17)
[2025-06-11 11:00] VITALS: BP 115/76
--- NOTE | 2025-06-11 13:15 | CON.CAR ---
Addendum entered and electronically signed by Michel Crump DO 06/11/25 17:37:
I saw and examined the patient.
The Pathology Teacher's note was reviewed and I agree with the note.
Comment:
Plan:
Presented 06/06/2025 with abdominal pain, nausea vomiting and found to have sepsis secondary to left obstructing kidney stone, s/p Lt ureteroscopy w/ stone removal and stent placement 06/06/25.
No recurrent bacteremia and agree with ID that SHAVONNE is not currently indicated.
Check echo and if stable with improved EF can likely be discharged from cardiac standpoint and would not require specific cardiac follow up.
Her HR has improved and she remains in sinus
She appears euvolemic
Her echo HR and bp findings appear related to her sepsis and have continued to improve.
Could consider repeat echo in one year through PCP
Discussed with pt and mother.
Original Note:
Consultation
Consultation Request
Date/Time Consultation Requested: 06/11/2025
Date/Time Consultation Performed: 06/11/2025
Requesting Provider: Dr. Clark
Performing Provider: Charla Rees PA-C for Dr. Michel Crump
Reason for Consultation: new cardiomyopathy
Medical History
-
History of Present Illness:
Patient is a 30-year-old female with past medical history for obesity, ADHD, depression who presented to emergency department with nausea, vomiting, left flank pain and was found to have obstructing kidney stone on 06/05/2025 and was treated with
conservative management. Patient's symptoms worsened prompting her to her to return to emergency department on 06/06/2025 where she was found to be septic with sinus tachycardia on EKG, leukocytosis, hypotensive and tachypneic. She was found to have
JUAN with creatinine of 2.9. She required IV fluid resuscitation as well as pressor support with Levophed. She was taken emergently to operating room and underwent left ureteroscopy, stone removal and stenting with purulent urine upon relief of
obstruction on 06/06/2025. 06/06/2025 blood culture 1 of 2 sets grew E coli. She was placed on IV antibiotics. Patient had echocardiogram with [facility] on 06/07/2025 which showed 06/07/2025 which showed reduced EF of 40% with global hypokinesis, normal LV
size and function. There was no significant valvular disease and no evidence of valvular vegetation. Echo was performed while patient was on IV pressors. Patient has since been weaned off pressors and is now hemodynamically stable. proBNP was
found to be elevated at 16,800. Cardiology being asked to see patient for tachycardia, new cardiomyopathy in setting of bacteremia.
Patient seen with mother at bedside. She reports she is feeling well and eager to go home. She reports if she stands quickly she will feel transiently dizzy/lightheaded that last several seconds then resolves. Over the last 24 to 48 hours she
reports swelling in hands and feet have resolved. Her baseline weight at home is 175 pounds. She denies palpitations, chest pain, shortness of breath, edema, orthopnea, PND
PMH:
Obesity
Depression
ADHD
Former smoker-less than [id number]
Past Medical History
Past Medical History: Other (see HPI)
Past Surgical History: Cholecystectomy, and Urological (left ureteroscopy, stone removal and stenting 06/06/2025)
Social History
Tobacco: Former Smoker
Alcohol: None
Drug: None
Personal: Other
Living: Other (boyfriend)
Family History
Family History: Reviewed & Not Pertinent (sister Lupus)
Allergies / Home Medications
Allergy/AdvReac Type Severity Reaction Status Date / Time
sulfamethoxazole (From Allergy Rash Verified 06/06/25 06:51
Bactrim)
trimethoprim (From Bactrim) Allergy Rash Verified 06/06/25 06:51
�Medication �Instructions �Recorded �Confirmed �Type
oxycodone 5 mg capsule 5 mg PO Q8H PRN Pain #10 caps 06/05/25 06/06/25 Rx
tamsulosin 0.4 mg capsule (Flomax) 0.4 mg PO DAILY #7 caps 06/05/25 06/06/25 Rx
atomoxetine 60 mg capsule 60 mg PO DAILY Mental 06/06/25 06/06/25 History
Health/Anxiety
bupropion HCl 300 mg 24 hr tablet, 300 mg PO DAILY Mental 06/06/25 06/06/25 History
extended release Health/Anxiety
duloxetine 40 mg capsule,delayed 40 mg PO DAILY Mental 06/06/25 06/06/25 History
release sprinkle Health/Anxiety
lamotrigine 25 mg tablet (Lamictal) 50 mg PO HS Mental Health/Anxiety 06/06/25 06/06/25 History
metoclopramide HCl 10 mg tablet 10 mg PO AC PRN acid reflux 06/06/25 06/06/25 History
topiramate 100 mg tablet 100 mg PO DAILY Mental 06/06/25 06/06/25 History
Health/Anxiety
Review of Systems
-
History Source: Patient
All other systems: Negative unless noted
Physical Exam
Vital Signs
Temp Pulse Resp BP Pulse Ox
98.2 F 81 17 115/76 98
06/11/25 11:00 06/11/25 11:00 06/11/25 11:00 06/11/25 11:00 06/11/25 11:00
GEN: No distress, awake, Ox3
HEENT: supple, anicteric, mmm
LUNGS: CTA, no wheezes/rales
CV: Reg, S1/S2, no murmur, rub or gallop
ABD: soft, BS+, NT/ND
EXT: No edema, clubbing or cyanosis
NEURO: Gross non-focal
SKIN: No rash, warm, dry, pink
Lab Results
06/11/25 06:12
06/11/25 06:12
Ncn-M-Sfyfbiayqcf Pept 17349 pg/ml 06/11/25 06:12
Impression / Plan
-
Supervisor Paint Department: None prior to arrival, initial consultation Dr. Michel Crump
Plan:
Presented 06/06/2025 with abdominal pain, nausea vomiting
Sepsis secondary to left obstructing kidney stone
s/p Lt ureteroscopy w/ stone removal and stent placement 06/06/25
E. coli bacteremia
JUAN, improved
Abnormal LFTs, improved
Electrolyte disturbance, improved
Heart failure, proBNP 16,800
Cardiomyopathy, unspecified
Obesity
Depression
ADHD
Former smoker-less than [id number]
Echo 06/07/2025 with [facility]: EF of 40% with global hypokinesis, normal LV size and function. There was no significant valvular disease and no evidence of valvular vegetation.
Plan:
- Presented 06/06/2025 with abdominal pain, nausea vomiting and found to have sepsis secondary to left obstructing kidney stone, s/p Lt ureteroscopy w/ stone removal and stent placement 06/06/25.
- E. coli bacteremia on 10/05 blood cultures on admission. Repeat BC from 06/09 show no growth x 48 hours. ID following and feels low suspicion for endocarditis with known source of bacteremia. No need for SHAVONNE at this time. Continue antibiotics per ID
for 14 day course
- CT a/p with IV contrast ordered 06/11 by ID to rule out renal abscess due to complaints of left flank pain.
- Newly discovered cardiomyopathy with EF 40% on echo 06/07/25 which was performed while pt was in septic shock on Levophed
- Would repeat limited echo given clinically patient continues to improve
- ECG on admission showed sinus tachycardia. Heart rates have now improved but can elevate with activity. Hopefully this will improve with time an ongoing treatment of bacteremia. Hesitant to start beta-juanjose at this time as patient does report
her blood pressure normally is low at home and she does have some mild dizziness/lightheadedness with positional change.
- Elevated proBNP 16,8000 which is likely due to aggressive fluid resuscitation in getting of sepsis. Patient reports baseline weight at home is 175 pounds. She is currently 177 pounds. She does not appear to be acutely volume overloaded on
examination. Would hold on starting diuretic at this time
HPI 06/11/2025:
Patient is a 30-year-old female with past medical history for obesity, ADHD, depression who presented to emergency department with nausea, vomiting, left flank pain and was found to have obstructing kidney stone on 06/05/2025 and was treated with
conservative management. Patient's symptoms worsened prompting her to her to return to emergency department on 06/06/2025 where she was found to be septic with sinus tachycardia on EKG, leukocytosis, hypotensive and tachypneic. She was found to have
JUAN with creatinine of 2.9. She required IV fluid resuscitation as well as pressor support with Levophed. She was taken emergently to operating room and underwent left ureteroscopy, stone removal and stenting with purulent urine upon relief of
obstruction on 06/06/2025. 06/06/2025 blood culture 1 of 2 sets grew E coli. She was placed on IV antibiotics. Patient had echocardiogram with [facility] on 06/07/2025 which showed 06/07/2025 which showed reduced EF of 40% with global hypokinesis, normal LV
size and function. There was no significant valvular disease and no evidence of valvular vegetation. Echo was performed while patient was on IV pressors. Patient has since been weaned off pressors and is now hemodynamically stable. proBNP was
found to be elevated at 16,800. Cardiology being asked to see patient for tachycardia, new cardiomyopathy in setting of bacteremia.
Patient seen with mother at bedside. She reports she is feeling well and eager to go home. She reports if she stands quickly she will feel transiently dizzy/lightheaded that last several seconds then resolves. Over the last 24 to 48 hours she
reports swelling in hands and feet have resolved. Her baseline weight at home is 175 pounds. She denies palpitations, chest pain, shortness of breath, edema, orthopnea, PND
Data Reviewed
-
EKG: Report Reviewed by me, Discussed with Physician, Discussed with Patient and Discussed with Family
Medical Tests (Nuc Med, Echo etc): Report Reviewed by me, Discussed with Physician, Discussed with Patient and Discussed with Family
Labs: Labs Reviewed by me, Discussed with Physician, Discussed with Patient and Discussed with Family
Old Records: Reviewed
[2025-06-11 13:58] LABS: Stone Analysis Mass 8 mg
--- NOTE | 2025-06-11 14:09 | W.PN.HOSP.TC ---
Today's Communication/Plan
-
CTAP
Monitor white count
ID consulted, recs appreciated
Doubt endocarditis
Assessment / Plan
Assessment / Plan
Physical Exam
General: No pallor, cyanosis, or jaundice. Obese no acute distress, appears comfortable at this time.
HEENT: Throat clear. PERRLA Normocephalic atraumatic
NECK: Supple. No JVD Carotid Bruits
RESPIRATORY: Lungs clear to auscultation. No crackles wheezes stridor
CVS: S1, S2 normal. RRR. No murmur, rub or gallop.
ABDOMEN: Soft, non-tender. No distension. Decreased bowel sounds. No flank tenderness
EXTREMITIES: No peripheral cyanosis or edema. Mild hands swelling
INDUSTRIAL ORDER CLERK: AOx3. conversant coherent
Psych: Calm
IMPRESSION:
30F hx ADHD Depression Obesity here for Severe Sepsis 2/2 left obstructing kidney stone with associate JUAN and Liver Injury. Planned for urgent OR stenting and admission to ICU for closer monitoring and pressor support as needed.
PLAN:
#Severe Sepsis 2/2 left obstructing kidney stone with associate JUAN and Liver Injury (no shock liver)
#Complicated UTI
ICU admit downgraded to Tele
Urology eval appreciated Lt ureteroscopy w/ stone removal and stent placement 06/06/25
weaned off Levophed
Nephro eval appreciated
IVF support completed
monitor renal function and LFTs (improving)
Urine Blood cx's pos for E. coli pansensitive, follow repeat blood culture
empiric Vanc Cefipime narrowed to ceftriaxone, DC on cefdinir - to complete 14 day course (D 03/17)
Liver and Kidney function improving
JUAN resolved
Persistent leukocytosis, cont to monitor on abx, consider ID eval if doesn't improve
#Leukocytosis, Persistent
-trending down, i suspect will continue to improve
-Will obtain CT A/P
- ID consulted
#Elevated D-Dimer likely 2/2 septic Shock
#Acute Hypoxia, resolved
#Possible Obesity Hypoventilation syndrome and/or obstructive sleep apnea contributing
wean O2 supplementation as tolerated
ECHO appreciated moderate reduced Ejection Fraction 40%
Venous Duplex neg for DVT
VQ scan low prob PE
empiric hep gtt since discontinued
Appears Euvolemic on exam
outpt sleep study, outpt repeat ECHO recommended
Considering Cardio eval inpt vs outpt
#B/L Hands swelling
likely from prior IVF
superficial thrombophlebitis from blood draws also contributing
Ice packs prn
#Metabolic Acidosis likely 2/2 Lactic acidosis
IVF support completed
trend lactic acid
Resolved
#Vit D deficiency
#Hypocalcemia
monitor and replete as necessary
Vit D supplementation
#Hypokalemia
#Hypophosphatemia
monitor and replete as necessary
#Transaminitis
� Most likely secondary to shock, sepsis
� Improving
#Hx ADHD, Depression
cont home atomoxetine bupropion duloxetine Lamictal
DVT ppx SCDs Heparin
Full Code
Discussed with patient and patient's mother Sondra
I spent a total of 47 minutes with the patient or on the floor. More than 50% of this time involved counseling and coordination of care.
Anticipated Discharge: Within 24 hours
Subjective/Interval History
-
Date of Service: June 11, 2025
no acute events
Objective Data
-
Labs:
Laboratory Results
06/11/25
06:12
WBC 21.8 H
Hgb 9.7 L
Hct 28.4 L
Plt Count 117 L
Sodium 137
Potassium 3.6
Chloride 112 H
Carbon Dioxide 20 L
BUN 12
Creatinine 0.8
Glucose 70
Calcium 8.2 L
Total Bilirubin 0.7
AST 30
ALT 69 H
Alkaline Phosphatase 139 H
Vital Signs:
Vital Signs
Temp Pulse Resp BP Pulse Ox
98.2 F 81 17 115/76 98
06/11/25 11:00 06/11/25 11:00 06/11/25 11:00 06/11/25 11:00 06/11/25 11:00
I&O
06/10/25 06/11/25 06/12/25
06:59 06:59 06:59
Intake Total 1580 / 1580 560 / 560
Balance 1580 / 1580 560 / 560
Review of Systems
-
History Source: Patient
All other systems: Not reviewed unless documented
Data Reviewed
-
Diagnostic Radiology: Report Reviewed by me
Labs: Labs Reviewed by me
--- NOTE | 2025-06-11 16:18 | CM ---
Chart reviewed and patient's plan remains to return to home with oral abx when stable, assistant case manager will follow with patient progress.
Plan; Home when stable.
[2025-06-11 16:24] VITALS: BP 123/85
[2025-06-11] MEDS: HEPARIN SC ×2 (18:28→22:51)
[2025-06-11 19:05] VITALS: BP 120/82
[2025-06-11] MEDS: LAMICTAL 50 MG PO (20:08)
[2025-06-11 23:03] VITALS: BP 121/79
[2025-06-12 03:00] VITALS: BP 110/68
[2025-06-12 06:11] VITALS: BMI 31.5
[2025-06-12 06:54] LABS: Hematocrit 31.0 % (37.0-47.0); Hemoglobin 10.5 g/dL (12.0-16.0); Mean Corp Hgb Conc. 33.9 g/dL (33.0-37.0); Mean Corpuscular Volume 83.6 fL (81.0-99.0); Platelet Count 178 10^3/uL (130-400); Red Cell Dist. Width 13.8 % (11.5-14.5)
[2025-06-12 08:00] VITALS: BP 123/83
[2025-06-12 08:20] LABS: ALT (SGPT) 55 U/L (0-35); AST (SGOT) 23 U/L (14-36); Albumin 3.4 g/dl (3.5-5.0); Alkaline Phosphatase 154 U/L (38-126); Blood Urea Nitrogen 10 mg/dl (7-17); Calcium 8.4 mg/dl (8.4-10.2); Carbon Dioxide 17 mmol/L (22-30); Chloride 111 mmol/L (98-107); Estimated Creatinine Clearance 100 ml/min; Glucose 70 mg/dl (70-99); Magnesium 1.8 mg/dl (1.6-2.3); Potassium 3.6 mmol/L (3.5-5.1); Sodium 138 mmol/L (135-145); Total Protein 6.1 g/dl (6.3-8.2); eGFR > 60.00
[2025-06-12] MEDS: NON-FORMULARY ITEM 60 MG PO (08:25)
[2025-06-12] MEDS: VITAMIN D3 (cholecalciferol) 25 MCG PO (08:25)
[2025-06-12] MEDS: WELLBUTRIN XL (24 hour extended release) 300 MG PO (08:25)
[2025-06-12] MEDS: TOPAMAX 100 MG PO (08:26)
[2025-06-12] MEDS: AUGMENTIN 875 MG/125 MG 1 TABLET PO (08:26)
[2025-06-12] MEDS: PROTONIX 40 MG PO (08:26)
[2025-06-12] MEDS: CYMBALTA DELAYED RELEASE 40 MG PO (08:26)
[2025-06-12] MEDS: FLOMAX 0.4 MG PO (08:26)
[2025-06-12] MEDS: HEPARIN SC (08:27)
[2025-06-12] MEDS: TYLENOL 650 MG PO (08:28)
--- NOTE | 2025-06-12 08:39 | W.PN.UPDATE ---
Update Note
Progress Note Update
Patient updated that repeat echo from 06/11/2025 shows normalization of EF now 50-55% with no significant valve disease. Review of telemetry shows sinus rhythm with brief periods of sinus tachycardia with activity. Overall heart rates seem to be
improving. Stable from cardiology standpoint for discharge. Patient can follow up with cardiology as needed if she should have palpitations or new cardiac issues.
[2025-06-12] MEDS: FLORASTOR 250 MG PO (09:24)
--- NOTE | 2025-06-12 10:17 | W.PN.ID1 ---
Date of Service
Date of Service: June 12, 2025
Today's Communication
- continue cefdinir 300 mg PO BID for 14 day course
- note plans for stent removal on 06/15; stone was removed completely 06/06
- follow up with urology
Assessment / Plan
Pyelonephritis due to E coli
Obstructing UVJ stone s/p removal 06/06
E coli bacteremia - not sustained
Septic Shock - resolved 06/08
Leukocytosis - improving
Depressed EF 40%, elevated BNP
- repeat blood culture is no growth
- CT a/p with IV contrast ruled out renal abscess
- continue cefdinir 300 mg PO BID for 14 day course
- note plans for stent removal on 06/15; stone was removed completely 06/06
- follow up with urology
Chief Complaint
-: UTI (pyelonephritis)
Subjective / Review of Systems
afebrile
bp stable
no complaints
Vital Signs / Physical Exam
Vital Signs
Vital Signs
Temp Pulse Resp BP Pulse Ox
98.1 F 97 16 123/83 97
06/12/25 08:00 06/12/25 08:00 06/12/25 08:00 06/12/25 08:00 06/12/25 08:21
Physical Exam
Constitutional: No Acute Distress
Cardiovascular: Regular Rate
Pulmonary: Symmetric and Non Labored
Gastrointestinal: Non Distended
Neurological: Awake
Objective Data
Lab Data
Lab Results
06/12/25 06:08
06/12/25 06:08
PT Cancelled 06/06/25 18:24
INR Cancelled 06/06/25 18:24
APTT > 200 Sec (23.4-35.0) H* 06/07/25 12:29
Estimated Creat Clear 100 ml/min 06/12/25 06:08
Lactic Acid 2.2 mmol/L (0.7-2.0) H 06/07/25 03:12
Total Bilirubin 0.6 mg/dl (0.2-1.3) 06/12/25 06:08
AST 23 U/L (14-36) 06/12/25 06:08
ALT 55 U/L (0-35) H 06/12/25 06:08
Alkaline Phosphatase 154 U/L (38-126) H 06/12/25 06:08
Most recent labs reviewed.
Micro Results:
06/06/25 06:55 Blood Culture - Final
Blood/Venous Escherichia coli
Gram Stain - Final
06/09/25 10:25 Blood Culture - Preliminary
Blood/Venous No Growth in 48 hours- Final report to follow
06/06/25 06:55 Blood Culture - Final
Blood/Venous No Growth - Final Report
06/08/25 14:03 MRSA Screen - Final
Nose No Methicillin Resistant Staphylococcus aureus isolated.
[2025-06-12 10:24] VITALS: O2SAT 100; O2SAT 96
[2025-06-12 11:04] VITALS: BP 122/86
--- NOTE | 2025-06-12 12:26 | W.PN.HOSP.TC ---
Addendum entered and electronically signed by Hugo Diane MD 06/13/25 17:23:
[id number]
Original Note:
Today's Communication/Plan
-
Cefdinir for 14 days
Follow-up urology, PCP, pulmonary outpatient
Cardiology follow-up if needed
Sleep study outpatient
Follow-up CBC and CMP closely
Assessment / Plan
Assessment / Plan
Physical Exam
General: No pallor, cyanosis, or jaundice. Obese no acute distress, appears comfortable at this time.
HEENT: Throat clear. PERRLA Normocephalic atraumatic
NECK: Supple. No JVD Carotid Bruits
RESPIRATORY: Lungs clear to auscultation. No crackles wheezes stridor
CVS: S1, S2 normal. RRR. No murmur, rub or gallop.
ABDOMEN: Soft, non-tender. No distension. Decreased bowel sounds. No flank tenderness
EXTREMITIES: No peripheral cyanosis or edema. Mild hands swelling
RUBBER CHEMIST: AOx3. conversant coherent
Psych: Calm
IMPRESSION:
30F hx ADHD Depression Obesity here for Severe Sepsis 2/2 left obstructing kidney stone with associate JUAN and Liver Injury. Planned for urgent OR stenting and admission to ICU for closer monitoring and pressor support as needed.
PLAN:
#Severe Sepsis 2/2 left obstructing kidney stone with associate JUAN and Liver Injury (no shock liver)
#Complicated UTI
ICU admit downgraded to Tele
Urology eval appreciated Lt ureteroscopy w/ stone removal and stent placement 06/06/25
weaned off Levophed
Nephro eval appreciated
IVF support completed
monitor renal function and LFTs (improving)
Urine Blood cx's pos for E. coli pansensitive, follow repeat blood culture
empiric Vanc Cefipime narrowed to ceftriaxone, DC on cefdinir - to complete 14 day course
Liver and Kidney function improving
JUAN resolved
Persistent leukocytosis - improving
#Leukocytosis, Persistent
-trending down, i suspect will continue to improve
-Will obtain CT A/P - no abscess
-No evidence of pneumonia clinically - no coughing, productive sputum, ambulating 97-100% on RA; no respiratory compromise
-Cefdinir 14 days
- ID consulted
#Elevated D-Dimer likely 2/2 septic Shock
#Acute Hypoxia, resolved
#Possible Obesity Hypoventilation syndrome and/or obstructive sleep apnea contributing
wean O2 supplementation as tolerated
ECHO appreciated moderate reduced Ejection Fraction 40% - repeat echo 50-55% - no need for repeat echo unless cards advised outpatient
Venous Duplex neg for DVT
VQ scan low prob PE
empiric hep gtt since discontinued
Appears Euvolemic on exam
outpt sleep study
Considering Cardio eval inpt vs outpt
#B/L Hands swelling
likely from prior IVF
superficial thrombophlebitis from blood draws also contributing
Ice packs prn
#Metabolic Acidosis likely 2/2 Lactic acidosis
IVF support completed
trend lactic acid
Resolved
F/u BMP outpt
#Vit D deficiency
#Hypocalcemia
monitor and replete as necessary
Vit D supplementation
#Hypokalemia
#Hypophosphatemia
monitor and replete as necessary
#Transaminitis
� Most likely secondary to shock, sepsis
� Improving
-F/u CMP outpt
#Hx ADHD, Depression
cont home atomoxetine bupropion duloxetine Lamictal
DVT ppx SCDs Heparin
Full Code
More than 30 minutes spent in discharge including
Final examination of the patient
Summarizing hospital stay
Instructions for continuing care to all relevant caregivers
Preparation of discharge records, prescriptions, and referral forms
Total time spent (in minutes): 36
Anticipated Discharge: Today
Subjective/Interval History
-
Date of Service: June 12, 2025
no acute events; ambulating 97% on RA
Objective Data
-
Labs:
Laboratory Results
06/12/25
06:08
WBC 18.6 H
Hgb 10.5 L
Hct 31.0 L
Plt Count 178 D
Sodium 138
Potassium 3.6
Chloride 111 H
Carbon Dioxide 17 L
BUN 10
Creatinine 0.8
Glucose 70
Calcium 8.4
Total Bilirubin 0.6
AST 23
ALT 55 H
Alkaline Phosphatase 154 H
Vital Signs:
Vital Signs
Temp Pulse Resp BP Pulse Ox
98.2 F 93 16 122/86 98
06/12/25 11:04 06/12/25 11:04 06/12/25 11:04 06/12/25 11:04 06/12/25 11:04
I&O
06/11/25 06/12/25 06/13/25
06:59 06:59 06:59
Intake Total 560 / 560 1440 / 1440
Balance 560 / 560 1440 / 1440
Review of Systems
-
History Source: Patient
All other systems: Not reviewed unless documented
Data Reviewed
-
Diagnostic Radiology: Report Reviewed by me
CT Scan: Report Reviewed by me
Labs: Labs Reviewed by me
--- NOTE | 2025-06-12 12:28 | CM ---
Chart reviewed and patient is for discharge to home today, no needs, Oral ABX
Plan; Home today no needs.
--- NOTE | 2025-06-12 12:34 | W.DS.TRANS ---
DC Summary - Tube Balancer
-
Discharge Instructions:
Discharge Diagnosis/Procedures Left Ureteral Stone, s/p removal and ureteral
stent insertion; E. coli Urosepsis
Blood Work cbc and CMP in 3-5 days with PCP
Others Tests Follow up with Pulmonology for outpatient sleep
study and Pulmonary Function Testing in 1 month
of discharge
Follow up with Cardiology as needed if she
should have palpitations or new cardiac issues.
ECHO has improved to 50-55%. Will defer further
ECHOs to PCP or Cards if needed
Instructions:
Stand-Alone Forms:
Changes to Home Medications: Yes
Discharge Medications:
DC Medications w/original date entered in [facility]
tamsulosin 0.4 mg capsule (Flomax) 0.4 mg PO DAILY #7 caps 06/05/25
atomoxetine 60 mg capsule 60 mg PO DAILY Mental Health/Anxiety 06/06/25
bupropion HCl 300 mg 24 hr tablet, extended release 300 mg PO DAILY Mental Health/Anxiety 06/06/25
duloxetine 40 mg capsule,delayed release sprinkle 40 mg PO DAILY Mental Health/Anxiety 06/06/25
lamotrigine 25 mg tablet (Lamictal) 50 mg PO HS Mental Health/Anxiety 06/06/25
metoclopramide HCl 10 mg tablet 10 mg PO AC PRN acid reflux 06/06/25
topiramate 100 mg tablet 100 mg PO DAILY Mental Health/Anxiety 06/06/25
Saccharomyces boulardii 250 mg capsule 250 mg PO BID@1000,2200 14 days #28 caps 06/12/25
cefdinir 300 mg capsule 300 mg PO Q12 14 days #28 caps 06/12/25
cholecalciferol (vitamin D3) 25 mcg (1,000 unit) tablet 25 mcg PO DAILY 30 days #30 tabs 06/12/25
Home Medication Changes
Saccharomyces boulardii 250 mg capsule 250 mg PO BID@1000,2200 14 days #28 caps 06/12/25
cefdinir 300 mg capsule 300 mg PO Q12 14 days #28 caps 06/12/25
cholecalciferol (vitamin D3) 25 mcg (1,000 unit) tablet 25 mcg PO DAILY 30 days #30 tabs 06/12/25
Pending Results: No
[2025-06-12] MEDS: KCL ELIXIR 40 MEQ PO (12:45)
== END 2025-06-12 13:17 | disposition home or self-care (01) | DRG 853 ==
LOC: 2 SOUTH 08:20
PROVIDERS: Internal Medicine; Nurse Practitioner Primary Care; Radiology Neuroradiology; ADMITTING PHYSICIAN Internal Medicine; ATTENDING PHYSICIAN Internal Medicine; CONSULT PHYSICIAN Internal Medicine Nephrology; CONSULT PHYSICIAN Nuclear Medicine Nuclear Cardiology; CONSULT PHYSICIAN Specialist; EMERGENCY PHYSICIAN Emergency Medicine; FAMILY PHYSICIAN Family Medicine; OTHER PHYSICIAN Internal Medicine Critical Care Medicine; OTHER PHYSICIAN Student in an Organized Health Care Education/Training Program
PROC: 0T778DZ Dilation of Left Ureter with Intraluminal Device, Via Natural or Artificial Opening Endoscopic (ICD-10-PCS; 2025-06-06)
PROC: B5181ZA Fluoroscopy of Superior Vena Cava using Low Osmolar Contrast, Guidance (ICD-10-PCS; 2025-06-06)
PROC: 0TC78ZZ Extirpation of Matter from Left Ureter, Via Natural or Artificial Opening Endoscopic (ICD-10-PCS; 2025-06-06)
PROC: 02HV33Z Insertion of Infusion Device into Superior Vena Cava, Percutaneous Approach (ICD-10-PCS; 2025-06-06)
DX: A41.51 Sepsis due to Escherichia coli [E. coli] (principal); R65.21 Severe sepsis with septic shock; N13.2 Hydronephrosis with renal and ureteral calculous obstruction; N17.9 Acute kidney failure, unspecified; E87.21 Acute metabolic acidosis; I42.9 Cardiomyopathy, unspecified; F90.9 Attention-deficit hyperactivity disorder, unspecified type; F32.A Depression, unspecified; E66.9 Obesity, unspecified; E83.51 Hypocalcemia; E87.6 Hypokalemia; E83.39 Other disorders of phosphorus metabolism; Z88.1 Allergy status to other antibiotic agents; Z88.2 Allergy status to sulfonamides; D64.9 Anemia, unspecified; D69.6 Thrombocytopenia, unspecified; Z79.899 Other long term (current) drug therapy; Z87.891 Personal history of nicotine dependence; B96.20 Unspecified Escherichia coli [E. coli] as the cause of diseases classified elsewhere; Z11.52 Encounter for screening for COVID-19
CPT/HCPCS: 36600; 71045; 74176; 74177; 76000; 78582; 80053; 80202; 82306; 82365; 82570; 82805; 82962; 83605; 83690; 83735; 83880; 84100; 84156; 85025; 85027; 85379; 85610; 85730; 86850; 86900; 86901; 87040; 87070; 87077; 87154; 87186; 87205; 87811; 93005; 93307; 93308; 93970; 96361; 96374; 96375; 99291; A9540; A9567; C2617; Q9957; Q9967

== ENCOUNTER → 2025-06-14 08:41 | Outpatient (REF) | payer OTHER, SELFPAY | LOC: REG 08:41 | PROVIDERS: ATTENDING PHYSICIAN Specialist | DX: Z22.322 Carrier or suspected carrier of Methicillin resistant Staphylococcus aureus (principal) | CPT/HCPCS: 36415; 87070 ==